=== PATIENT | male | born 1975 | race Hispanic/Latino ===

== ENCOUNTER 2021-09-07 13:23 | Inpatient (IN) | payer OTHER ==
[2021-09-07] VITALS (12 sets, daily range): BP systolic 117–168; BP diastolic 65–102
[~2021-09-07] VITALS: Ht 172.7 cm; Wt 94.1 kg
[2021-09-07] MEDS ORDERED: 0.9%NACL 1000ML 1,000 ML IV ONE ×2 (13:30→14:30)
[2021-09-07 13:56] LABS: BASOPHILS % (AUTO) 0.7 % (0.0-5.0); EOSINOPHILS % (AUTO) 0.6 % (0.0-8.0); HEMATOCRIT 38.6 % (42-54); LYMPHOCYTES % (AUTO) 18.4 % (21.0-51.0); MEAN CORPUSCULAR HEMOGLOBIN 29.3 pg (27.0-33.0); MEAN CORPUSCULAR HGB CONC 33.7 g/dL (32.0-36.0); MEAN CORPUSCULAR VOLUME 86.9 fL (79-99); MONOCYTES % (AUTO) 4.2 % (3.0-13.0); NEUTROPHILS % (AUTO) 75.6 % (40.0-77.0); PLATELET COUNT (AUTO) 337 K/uL (130-400); RED BLOOD CELL COUNT(AUTO) 4.44 MIL/uL (4.50-6.20); RED CELL DISTRIBUTION WIDTH 11.9 % (11.0-15.5); WHITE BLOOD COUNT (AUTO) 8.4 K/uL (4.8-10.8)
[2021-09-07 14:02] LABS: ABG BASE EXCESS -7.8 mmol/L (-2.0-3.0); ABG HCO3 18.7 mmol/L (21.0-28.0); ABG OXYGEN SATURATION 82.1 % (95.0-99.0); ABG PCO2 42 mmHg (35-48)
[2021-09-07 14:16] LABS: BILIRUBIN,TOTAL 0.4 mg/dL (0.2-1.0); POTASSIUM 5.2 mmol/L (3.5-5.1); TOTAL PROTEIN, SERUM 7.3 g/dL (6.0-8.3)
[2021-09-07 14:17] LABS: ALBUMIN 2.6 g/dL (3.5-5.0)
[2021-09-07] MEDS ORDERED: INSULIN HUMULIN R 100 UNIT/ML 3ML IV ONE (14:30)
[2021-09-07] MEDS ORDERED: NA ZIRCON CYCLOSIL(LOKELMA 10GM) PO ONE (14:30)
[2021-09-07] MEDS ORDERED: DEXTROSE 5 %-0.45 % NACL 1,000 ML IV PRN (15:30)
[2021-09-07] MEDS ORDERED: ASPIRIN 81MG CHEW TAB PO ONE (15:30)
[2021-09-07] MEDS ORDERED: INSULIN REGULAR, HUMAN 3ML 100 UNIT in 0.9%NACL 100ML 99 ML IV PRN ×2 (15:30)
[2021-09-07] MEDS ORDERED: 0.9%NACL 1000ML 1,000 ML IV SCH (15:30)
[2021-09-07] MEDS ORDERED: POTASSIUM CHLORIDE 10MEQ/100ML 100 ML IV PRN (15:30)
[2021-09-07] MEDS: 0.9%NACL 1000ML 1,000 ML IV SCH ×2 (15:50→22:07)
[2021-09-07 16:09] LABS: APPEARANCE,URINE CLEAR (CLEAR); BILIRUBIN,URINE NEGATIVE (NEGATIVE); COLOR,URINE YELLOW (YELLOW); GLUCOSE, URINE (UA) >=1000 mg/dL (NEGATIVE); KETONES,URINE 15 mg/dL (NEGATIVE); LEUKOCYTE ESTERASE ,URINE NEGATIVE (NEGATIVE); NITRATE,URINE NEGATIVE (NEGATIVE); OCCULT BLOOD,URINE TRACE-INTACT (NEGATIVE); PH,URINE 5.5 (5.0-8.0); PROTEIN,URINE 30 mg/dL (NEGATIVE); UROBILINOGEN,URINE 0.2 mg/dL (0.2-1.0)
[2021-09-07 16:16] LABS: BACTERIA,URINE Few /HPF (None Seen); SQUAMOUS EPITHELIAL CELL,UR Few /HPF (0-2)
[2021-09-07] MEDS: INSULIN GLARGINE 100 UNITS/ML 10 ML VIAL SQ SCH ×2 (16:25→21:00)
[2021-09-07 16:39] LABS: CREATININE 1.9 mg/dL (0.5-1.5); POTASSIUM 4.3 mmol/L (3.5-5.1)
[2021-09-07] MEDS ORDERED: ASPI-1197 PO (17:26)
[2021-09-07] MEDS ORDERED: BRIM5DRO OP (17:26)
[2021-09-07] MEDS ORDERED: INS7030 SQ ×2 (17:26)
[2021-09-07] MEDS ORDERED: PANT40TA54 PO (17:26)
[2021-09-07] MEDS ORDERED: NETA2.5D3 OP (17:26)
[2021-09-07] MEDS ORDERED: ATOR40TA71 PO (17:26)
[2021-09-07] MEDS ORDERED: LISI5TAB21 PO (17:26)
[2021-09-07] MEDS ORDERED: METO-408 PO (17:26)
[2021-09-07 17:46] LABS: CHLORIDE,URINE RANDOM 45 mmol/L (110-250); POTASSIUM,URINE RANDOM 10 mmol/L (25-125); SODIUM,URINE RANDOM 44 mmol/l (40-220)
[2021-09-07 17:58] LABS: AMPHET/METH SCREEN,URINE NEGATIVE (NEGATIVE); BARBITURATE SCREEN, URINE NEGATIVE (NEGATIVE); BENZODIAZEPINES SCREEN,URINE NEGATIVE (NEGATIVE); CANNABINOID SCREEN,URINE NEGATIVE (NEGATIVE); COCAINE SCREEN,URINE NEGATIVE (NEGATIVE); OPIATE SCREEN,URINE NEGATIVE (NEGATIVE); PHENCYCLIDINE SCREEN,URINE NEGATIVE (NEGATIVE)
[2021-09-07] MEDS ORDERED: TICAGRELOR 90 MG TABLET PO SCH (19:00)
[2021-09-07] MEDS ORDERED: CEFTRIAXONE 1G VIAL IVP SCH (19:00)
[2021-09-07] MEDS: DOXYCYCLINE HYCLATE 100 MG TABLET PO SCH (20:33)
[2021-09-07] MEDS: ATORVASTATIN 40 MG TABLET PO SCH (20:34)
[2021-09-07 20:59] LABS: CREATININE 1.5 mg/dL (0.5-1.5); POTASSIUM 4.1 mmol/L (3.5-5.1)
[2021-09-07] MEDS ORDERED: METOPROLOL TARTRATE 25 MG TAB PO ONE (21:30)
[2021-09-07] MEDS ORDERED: LISINOPRIL 5 MG TABLET PO SCH (21:30)
[2021-09-08] VITALS (19 sets, daily range): BP systolic 130–171; BP diastolic 73–99
[2021-09-08 00:22] LABS: CREATININE 1.3 mg/dL (0.5-1.5); POTASSIUM 3.8 mmol/L (3.5-5.1)
[2021-09-08 00:32] LABS: ABG BASE EXCESS -1.8 mmol/L (-2.0-3.0); ABG HCO3 23.4 mmol/L (21.0-28.0); ABG OXYGEN SATURATION 93.9 % (95.0-99.0); ABG PCO2 42 mmHg (35-48)
[2021-09-08 04:38] LABS: HEMATOCRIT 34.2 % (42-54); MEAN CORPUSCULAR HEMOGLOBIN 29.6 pg (27.0-33.0); MEAN CORPUSCULAR HGB CONC 33.6 g/dL (32.0-36.0); MEAN CORPUSCULAR VOLUME 87.9 fL (79-99); RED BLOOD CELL COUNT(AUTO) 3.89 MIL/uL (4.50-6.20); RED CELL DISTRIBUTION WIDTH 12.2 % (11.0-15.5); WHITE BLOOD COUNT (AUTO) 6.4 K/uL (4.8-10.8)
[2021-09-08 04:56] LABS: CREATININE 1.2 mg/dL (0.5-1.5); POTASSIUM 3.6 mmol/L (3.5-5.1)
[2021-09-08 04:58] LABS: MAGNESIUM 1.7 mg/dL (1.80-2.40)
[2021-09-08] MEDS ORDERED: MAGNESIUM 2GM PREMIX 50ML 50 ML IV PRN (08:00)
[2021-09-08 08:16] LABS: CREATININE 1.3 mg/dL (0.5-1.5); POTASSIUM 3.7 mmol/L (3.5-5.1)
[2021-09-08] MEDS ORDERED: KCL 20 MEQ ERTAB PO PRN (10:00)
[2021-09-08] MEDS ORDERED: POTASSIUM CHLORIDE 10% ELIXIR 20 MEQ/15 ML UDCUP PO PRN (10:00)
[2021-09-08] MEDS ORDERED: LIDOCAINE HCL-MPF 1% 2ML VIAL IV PRN (10:00)
[2021-09-08] MEDS ORDERED: POTASSIUM CHLORIDE 20MEQ/100ML 100 ML IV PRN (10:00)
[2021-09-08] MEDS: 0.9%NACL 1000ML 1,000 ML IV SCH ×2 (10:04→21:27)
[2021-09-08] MEDS: METOPROLOL SUCCINATE 25 MG TAB.SR.24H PO SCH (10:04)
[2021-09-08] MEDS: TICAGRELOR 90 MG TABLET PO SCH ×2 (10:04→20:18)
[2021-09-08] MEDS: LISINOPRIL 5 MG TABLET PO SCH (10:04)
[2021-09-08] MEDS: DOXYCYCLINE HYCLATE 100 MG TABLET PO SCH ×2 (10:04→20:18)
[2021-09-08] MEDS: INSULIN GLARGINE 100 UNITS/ML 10 ML VIAL SQ SCH ×2 (10:05→21:19)
[2021-09-08] MEDS: INSULIN HUMULIN R 100 UNIT/ML 3ML SQ SCH ×3 (12:04→21:20)
[2021-09-08] MEDS ORDERED: CLONIDINE HCL 0.1 MG TABLET ONE (20:15)
[2021-09-08] MEDS: ATORVASTATIN 40 MG TABLET PO SCH (20:18)
[2021-09-08] MEDS ORDERED: CLONIDINE HCL 0.1 MG TABLET PO SCH (20:30)
[2021-09-08] MEDS ORDERED: CEFTRIAXONE 1G VIAL IVP SCH (21:00)
[2021-09-09 00:58] LABS: CREATININE 1.5 mg/dL (0.5-1.5)
[2021-09-09 05:05] VITALS: BP 160/95
[2021-09-09 05:41] LABS: BASOPHILS % (AUTO) 0.6 % (0.0-5.0); EOSINOPHILS % (AUTO) 2.2 % (0.0-8.0); HEMATOCRIT 37.9 % (42-54); LYMPHOCYTES % (AUTO) 37.2 % (21.0-51.0); MEAN CORPUSCULAR HEMOGLOBIN 29.2 pg (27.0-33.0); MEAN CORPUSCULAR HGB CONC 33.8 g/dL (32.0-36.0); MEAN CORPUSCULAR VOLUME 86.5 fL (79-99); MONOCYTES % (AUTO) 6.1 % (3.0-13.0); NEUTROPHILS % (AUTO) 53.6 % (40.0-77.0); PLATELET COUNT (AUTO) 313 K/uL (130-400); RED BLOOD CELL COUNT(AUTO) 4.38 MIL/uL (4.50-6.20); RED CELL DISTRIBUTION WIDTH 12.1 % (11.0-15.5); WHITE BLOOD COUNT (AUTO) 6.4 K/uL (4.8-10.8)
[2021-09-09 06:09] LABS: BILIRUBIN,TOTAL 0.2 mg/dL (0.2-1.0); CREATININE 1.3 mg/dL (0.5-1.5); MAGNESIUM 1.8 mg/dL (1.80-2.40); POTASSIUM 4.1 mmol/L (3.5-5.1); TOTAL PROTEIN, SERUM 6.2 g/dL (6.0-8.3)
[2021-09-09] MEDS: INSULIN HUMULIN R 100 UNIT/ML 3ML SQ SCH ×4 (06:41→11:35)
[2021-09-09 07:00] VITALS: BP 159/100
[2021-09-09] MEDS: INSULIN GLARGINE 100 UNITS/ML 10 ML VIAL SQ SCH (07:01)
[2021-09-09] MEDS ORDERED: HONEY 1 APPL/ML TUBE TP SCH (09:00)
[2021-09-09] MEDS: DOXYCYCLINE HYCLATE 100 MG TABLET PO SCH (09:03)
[2021-09-09] MEDS: METOPROLOL SUCCINATE 25 MG TAB.SR.24H PO SCH (09:03)
[2021-09-09] MEDS: TICAGRELOR 90 MG TABLET PO SCH (09:04)
[2021-09-09] MEDS: LISINOPRIL 5 MG TABLET PO SCH (09:04)
[2021-09-09] MEDS ORDERED: GLIM4TAB36 PO (11:53)
[2021-09-09] MEDS ORDERED: METF-444 PO (11:53)
[2021-09-09] MEDS ORDERED: INSLAN SQ (11:53)
[2021-09-09 12:00] VITALS: BP 152/94
[2021-09-09] MEDS ORDERED: TICA90TA PO (12:35)
== END 2021-09-09 13:00 | disposition home or self-care (01) | DRG 637 ==
LOC: EDH 13:23 → EDHIP 13:24 → 2BH 16:55 → 3BH 09-08 15:59
PROVIDERS: ADMIT Internal Medicine; ATTEND Internal Medicine
DX: E11.10 Type 2 diabetes mellitus with ketoacidosis without coma (principal); I21.A1 Myocardial infarction type 2; J18.9 Pneumonia, unspecified organism; N17.9 Acute kidney failure, unspecified; E87.1 Hypo-osmolality and hyponatremia; E87.5 Hyperkalemia; Z91.19 Patient's noncompliance with other medical treatment and regimen; I25.2 Old myocardial infarction; E78.00 Pure hypercholesterolemia, unspecified; Z95.5 Presence of coronary angioplasty implant and graft; H54.7 Unspecified visual loss; I10 Essential (primary) hypertension; I25.10 Atherosclerotic heart disease of native coronary artery without angina pectoris; E11.621 Type 2 diabetes mellitus with foot ulcer; L97.519 Non-pressure chronic ulcer of other part of right foot with unspecified severity; E87.6 Hypokalemia
CPT/HCPCS: 36415; 36600; 71045; 76770; 80048; 80051; 80053; 80305; 81001; 82010; 82435; 82803; 82947; 82948; 83605; 83735; 83880; 83930; 84100; 84132; 84295; 84443; 84484; 84550; 85018; 85025; 85027; 93005; 93306; 93356; 99291; G0378; J0696; J1815; J3475

== ENCOUNTER 2021-09-14 19:26 | Inpatient (IN) | payer OTHER ==
[~2021-09-14] VITALS: Ht 172.7 cm; Wt 95.4 kg
[~2021-09-14 19:26] MED LIST: ASPI-1197 PO; ATOR40TA71 PO; BRIM5DRO OP; GLIM4TAB36 PO; INSLAN SQ; LISI5TAB21 PO; METF-444 PO; METO-408 PO; NETA2.5D3 OP; PANT40TA54 PO; TICA90TA PO
[2021-09-14 19:51] LABS: BASOPHILS % (AUTO) 0.5 % (0.0-5.0); EOSINOPHILS % (AUTO) 0.7 % (0.0-8.0); HEMATOCRIT 35.7 % (42-54); LYMPHOCYTES % (AUTO) 19.2 % (21.0-51.0); MEAN CORPUSCULAR HEMOGLOBIN 29.9 pg (27.0-33.0); MEAN CORPUSCULAR HGB CONC 34.5 g/dL (32.0-36.0); MEAN CORPUSCULAR VOLUME 86.9 fL (79-99); MONOCYTES % (AUTO) 6.9 % (3.0-13.0); NEUTROPHILS % (AUTO) 72.3 % (40.0-77.0); PLATELET COUNT (AUTO) 284 K/uL (130-400); RED BLOOD CELL COUNT(AUTO) 4.11 MIL/uL (4.50-6.20); RED CELL DISTRIBUTION WIDTH 12.4 % (11.0-15.5); WHITE BLOOD COUNT (AUTO) 11.1 K/uL (4.8-10.8)
[2021-09-14 20:22] LABS: ALANINE AMINOTRANSFERASE 27 U/L (12-78); ALBUMIN 2.4 g/dL (3.5-5.0); ASPARTATE AMINOTRANSFERASE 17 U/L (10-37); CARBON DIOXIDE 29 mmol/L (21-32); CHLORIDE 93 mmol/L (101-111); GLOMERULAR FILTR. RATE CALC 39 mL/min (>60); LIPASE 97 U/L (114-286); POTASSIUM 4.9 mmol/L (3.5-5.1); SODIUM SERUM 129 mmol/L (136-145); TOTAL PROTEIN, SERUM 7.1 g/dL (6.0-8.3); UREA NITROGEN, BLOOD 30 mg/dL (7-18)
[2021-09-14 20:25] LABS: GLUCOSE,RANDOM 715 mg/dL (70-105)
[2021-09-14] MEDS ORDERED: INSULIN HUMULIN R 100 UNIT/ML 3ML ONE (20:30)
[2021-09-14] MEDS ORDERED: 0.9%NACL 1000ML 1,000 ML IV ONE (20:30)
[2021-09-14] MEDS ORDERED: INSULIN HUMULIN R 100 UNIT/ML 3ML SQ ONE (22:30)
[2021-09-14 23:29] LABS: ABG BASE EXCESS -1.1 mmol/L (-2.0-3.0); ABG HCO3 23.4 mmol/L (21.0-28.0); ABG OXYGEN SATURATION 96.8 % (95.0-99.0); ABG PCO2 39 mmHg (35-48)
[2021-09-14 23:30] LABS: APPEARANCE,URINE CLEAR (CLEAR); BILIRUBIN,URINE NEGATIVE (NEGATIVE); COLOR,URINE YELLOW (YELLOW); GLUCOSE, URINE (UA) >=1000 mg/dL (NEGATIVE); KETONES,URINE 5 mg/dL (NEGATIVE); LEUKOCYTE ESTERASE ,URINE NEGATIVE (NEGATIVE); NITRATE,URINE NEGATIVE (NEGATIVE); OCCULT BLOOD,URINE SMALL (NEGATIVE); PROTEIN,URINE 100 mg/dL (NEGATIVE); UROBILINOGEN,URINE 0.2 mg/dL (0.2-1.0)
[2021-09-15] VITALS (7 sets, daily range): BP systolic 120–168; BP diastolic 79–103
[2021-09-15] MEDS ORDERED: MORPHINE 4 MG SYG IV PRN
[2021-09-15] MEDS ORDERED: ACETAMINOPHEN 325 MG TAB PO PRN
[2021-09-15] MEDS ORDERED: HYDROCODONE/ACETAMINOPHEN 5/325 MG TAB PO PRN
[2021-09-15] MEDS ORDERED: 0.9%NACL 1000ML 1,000 ML IV SCH ×2
[2021-09-15] MEDS ORDERED: ONDANSETRON 4MG INJ IV PRN
[2021-09-15 00:31] LABS: RBC,URINE 0-1 /HPF (0-1)
[2021-09-15 00:32] LABS: BACTERIA,URINE None Seen /HPF (None Seen); SQUAMOUS EPITHELIAL CELL,UR Rare /HPF (0-2)
[2021-09-15 05:46] LABS: BASOPHILS % (AUTO) 0.4 % (0.0-5.0); EOSINOPHILS % (AUTO) 1.5 % (0.0-8.0); HEMATOCRIT 33.5 % (42-54); LYMPHOCYTES % (AUTO) 24.8 % (21.0-51.0); MEAN CORPUSCULAR HEMOGLOBIN 29.3 pg (27.0-33.0); MEAN CORPUSCULAR HGB CONC 33.4 g/dL (32.0-36.0); MEAN CORPUSCULAR VOLUME 87.7 fL (79-99); MONOCYTES % (AUTO) 7.2 % (3.0-13.0); NEUTROPHILS % (AUTO) 65.8 % (40.0-77.0); PLATELET COUNT (AUTO) 269 K/uL (130-400); RED BLOOD CELL COUNT(AUTO) 3.82 MIL/uL (4.50-6.20); RED CELL DISTRIBUTION WIDTH 12.7 % (11.0-15.5); WHITE BLOOD COUNT (AUTO) 9.1 K/uL (4.8-10.8)
[2021-09-15 06:01] LABS: CREATININE 1.4 mg/dL (0.5-1.5); MAGNESIUM 1.9 mg/dL (1.80-2.40); PHOSPHORUS 2.7 mg/dL (2.5-4.9); POTASSIUM 4.3 mmol/L (3.5-5.1)
[2021-09-15] MEDS: INSULIN HUMULIN R 100 UNIT/ML 3ML SQ SCH ×4 (06:19→21:08)
[2021-09-15] MEDS ORDERED: HEPARIN 5,000 UNIT VIAL SQ SCH (09:00)
[2021-09-15] MEDS: ASPIRIN 81MG CHEW TAB PO SCH (12:05)
[2021-09-15] MEDS: TICAGRELOR 90 MG TABLET PO SCH ×2 (12:06→21:07)
[2021-09-15] MEDS: FAMOTIDINE 20MG VIAL IV SCH (12:06)
[2021-09-15] MEDS: INSULIN GLARGINE 100 UNITS/ML 10 ML VIAL SQ SCH (12:07)
[2021-09-15 14:22] LABS: CREATININE 1.5 mg/dL (0.5-1.5); POTASSIUM 4.7 mmol/L (3.5-5.1)
[2021-09-15] MEDS: ATORVASTATIN 40 MG TABLET PO SCH (21:07)
[2021-09-15 22:22] LABS: CREATININE 1.8 mg/dL (0.5-1.5); POTASSIUM 4.1 mmol/L (3.5-5.1)
[2021-09-16 04:31] VITALS: BP 149/89
[2021-09-16 05:15] LABS: BASOPHILS % (AUTO) 0.3 % (0.0-5.0); EOSINOPHILS % (AUTO) 1.9 % (0.0-8.0); HEMATOCRIT 34.3 % (42-54); LYMPHOCYTES % (AUTO) 20.2 % (21.0-51.0); MEAN CORPUSCULAR HEMOGLOBIN 29.3 pg (27.0-33.0); MEAN CORPUSCULAR HGB CONC 33.8 g/dL (32.0-36.0); MEAN CORPUSCULAR VOLUME 86.6 fL (79-99); NEUTROPHILS % (AUTO) 68.2 % (40.0-77.0); PLATELET COUNT (AUTO) 265 K/uL (130-400); RED BLOOD CELL COUNT(AUTO) 3.96 MIL/uL (4.50-6.20); RED CELL DISTRIBUTION WIDTH 12.4 % (11.0-15.5); WHITE BLOOD COUNT (AUTO) 10.6 K/uL (4.8-10.8)
[2021-09-16 05:38] LABS: CREATININE 1.5 mg/dL (0.5-1.5); MAGNESIUM 1.8 mg/dL (1.80-2.40); POTASSIUM 4.1 mmol/L (3.5-5.1)
[2021-09-16] MEDS: INSULIN HUMULIN R 100 UNIT/ML 3ML SQ SCH ×7 (06:04→23:35)
[2021-09-16 08:02] VITALS: BP 122/77
[2021-09-16] MEDS: INSULIN GLARGINE 100 UNITS/ML 10 ML VIAL SQ SCH (08:46)
[2021-09-16] MEDS: METOPROLOL SUCCINATE 25 MG TAB.SR.24H PO SCH (08:55)
[2021-09-16] MEDS: ASPIRIN 81MG CHEW TAB PO SCH (08:56)
[2021-09-16] MEDS: TICAGRELOR 90 MG TABLET PO SCH ×2 (08:56→20:42)
[2021-09-16] MEDS: FAMOTIDINE 20MG VIAL IV SCH (08:57)
[2021-09-16] MEDS ORDERED: LISINOPRIL 5 MG TABLET PO SCH ×2 (09:00→20:00)
[2021-09-16 11:16] VITALS: BP 168/92
[2021-09-16 16:09] VITALS: BP 156/99
[2021-09-16 20:36] VITALS: BP 153/90
[2021-09-16] MEDS: ATORVASTATIN 40 MG TABLET PO SCH (20:42)
[2021-09-16 23:18] VITALS: BP 130/81
[2021-09-17] VITALS (8 sets, daily range): BP systolic 94–158; BP diastolic 60–98
[2021-09-17] MEDS: INSULIN HUMULIN R 100 UNIT/ML 3ML SQ SCH ×7 (06:41→23:12)
[2021-09-17 06:55] LABS: BASOPHILS % (AUTO) 0.5 % (0.0-5.0); EOSINOPHILS % (AUTO) 4.2 % (0.0-8.0); HEMATOCRIT 37.8 % (42-54); LYMPHOCYTES % (AUTO) 27.9 % (21.0-51.0); MEAN CORPUSCULAR HEMOGLOBIN 29.5 pg (27.0-33.0); MEAN CORPUSCULAR HGB CONC 33.6 g/dL (32.0-36.0); MEAN CORPUSCULAR VOLUME 87.7 fL (79-99); MONOCYTES % (AUTO) 8.4 % (3.0-13.0); NEUTROPHILS % (AUTO) 58.7 % (40.0-77.0); PLATELET COUNT (AUTO) 272 K/uL (130-400); RED BLOOD CELL COUNT(AUTO) 4.31 MIL/uL (4.50-6.20); RED CELL DISTRIBUTION WIDTH 12.2 % (11.0-15.5); WHITE BLOOD COUNT (AUTO) 7.6 K/uL (4.8-10.8)
[2021-09-17 07:05] LABS: CREATININE 1.4 mg/dL (0.5-1.5); MAGNESIUM 1.8 mg/dL (1.80-2.40)
[2021-09-17 07:14] LABS: POTASSIUM 6.8 mmol/L (3.5-5.1)
[2021-09-17] MEDS ORDERED: PHARMACY COMMUNICATION MISC SCH (08:00)
[2021-09-17 08:10] LABS: CREATININE 1.3 mg/dL (0.5-1.5); POTASSIUM 5.2 mmol/L (3.5-5.1)
[2021-09-17] MEDS ORDERED: NA ZIRCON CYCLOSIL(LOKELMA 10GM) PO NR (08:30)
[2021-09-17] MEDS: ASPIRIN 81MG CHEW TAB PO SCH (08:50)
[2021-09-17] MEDS: METOPROLOL SUCCINATE 25 MG TAB.SR.24H PO SCH (08:50)
[2021-09-17] MEDS: INSULIN GLARGINE 100 UNITS/ML 10 ML VIAL SQ SCH (08:50)
[2021-09-17] MEDS: FAMOTIDINE 20MG VIAL IV SCH (08:50)
[2021-09-17] MEDS: TICAGRELOR 90 MG TABLET PO SCH ×2 (08:50→23:11)
[2021-09-17 13:12] LABS: CREATININE 1.4 mg/dL (0.5-1.5); POTASSIUM 4.5 mmol/L (3.5-5.1)
[2021-09-17] MEDS ORDERED: 0.9% NACL 500ML IV.SOLN 500 ML IV SCH (17:30)
[2021-09-17] MEDS: 0.9%NACL 1000ML 1,000 ML IV SCH (17:54)
[2021-09-17 18:10] LABS: APPEARANCE,URINE CLEAR (CLEAR); BILIRUBIN,URINE NEGATIVE (NEGATIVE); COLOR,URINE YELLOW (YELLOW); GLUCOSE, URINE (UA) >=1000 mg/dL (NEGATIVE); KETONES,URINE NEGATIVE (NEGATIVE); LEUKOCYTE ESTERASE ,URINE NEGATIVE (NEGATIVE); NITRATE,URINE NEGATIVE (NEGATIVE); OCCULT BLOOD,URINE SMALL (NEGATIVE); PROTEIN,URINE 100 mg/dL (NEGATIVE); UROBILINOGEN,URINE 0.2 mg/dL (0.2-1.0)
[2021-09-17 18:37] LABS: BACTERIA,URINE Few /HPF (None Seen); MUCUS,URINE Moderate LPF (None Seen); SQUAMOUS EPITHELIAL CELL,UR Many /HPF (0-2)
[2021-09-17] MEDS: ATORVASTATIN 40 MG TABLET PO SCH (23:11)
[2021-09-18 04:34] VITALS: BP 153/96
[2021-09-18] MEDS: INSULIN HUMULIN R 100 UNIT/ML 3ML SQ SCH ×6 (06:34→16:53)
[2021-09-18] MEDS: 0.9%NACL 1000ML 1,000 ML IV SCH (06:50)
[2021-09-18 07:01] LABS: BASOPHILS % (AUTO) 0.4 % (0.0-5.0); EOSINOPHILS % (AUTO) 2.9 % (0.0-8.0); HEMATOCRIT 35.4 % (42-54); LYMPHOCYTES % (AUTO) 29.1 % (21.0-51.0); MEAN CORPUSCULAR HEMOGLOBIN 29.3 pg (27.0-33.0); MEAN CORPUSCULAR HGB CONC 33.6 g/dL (32.0-36.0); MEAN CORPUSCULAR VOLUME 87.2 fL (79-99); MONOCYTES % (AUTO) 6.6 % (3.0-13.0); NEUTROPHILS % (AUTO) 60.5 % (40.0-77.0); PLATELET COUNT (AUTO) 274 K/uL (130-400); RED BLOOD CELL COUNT(AUTO) 4.06 MIL/uL (4.50-6.20); RED CELL DISTRIBUTION WIDTH 12.3 % (11.0-15.5)
[2021-09-18 07:16] LABS: CREATININE 1.4 mg/dL (0.5-1.5); POTASSIUM 4.4 mmol/L (3.5-5.1)
[2021-09-18 08:00] VITALS: BP 125/83
[2021-09-18 08:03] VITALS: BP 90/59
[2021-09-18 08:06] VITALS: BP 87/53
[2021-09-18] MEDS: METOPROLOL SUCCINATE 25 MG TAB.SR.24H PO SCH ×2 (08:17→09:00)
[2021-09-18] MEDS: ASPIRIN 81MG CHEW TAB PO SCH (08:18)
[2021-09-18] MEDS: TICAGRELOR 90 MG TABLET PO SCH (08:18)
[2021-09-18] MEDS: FAMOTIDINE 20MG VIAL IV SCH (08:18)
[2021-09-18] MEDS: INSULIN GLARGINE 100 UNITS/ML 10 ML VIAL SQ SCH (08:21)
[2021-09-18 12:00] VITALS: BP 132/68
[2021-09-18 16:00] VITALS: BP 97/52
[2021-09-18] MEDS ORDERED: TICA90TA PO (16:10)
[2021-09-18] MEDS ORDERED: ASPI-1005 PO (16:10)
[2021-09-19] MEDS ORDERED: INSULIN GLARGINE 100 UNITS/ML 10 ML VIAL SQ SCH (08:00)
== END 2021-09-18 18:30 | disposition home or self-care (01) | DRG 637 ==
LOC: EDH 19:26 → EDHIP 19:27 → 3DH 09-15 00:38
PROVIDERS: ADMIT Internal Medicine; ATTEND Internal Medicine
DX: E11.65 Type 2 diabetes mellitus with hyperglycemia (principal); I21.A1 Myocardial infarction type 2; N17.9 Acute kidney failure, unspecified; I13.0 Hypertensive heart and chronic kidney disease with heart failure and stage 1 through stage 4 chronic kidney disease, or unspecified chronic kidney disease; D72.829 Elevated white blood cell count, unspecified; E11.621 Type 2 diabetes mellitus with foot ulcer; Z91.19 Patient's noncompliance with other medical treatment and regimen; E78.5 Hyperlipidemia, unspecified; D64.9 Anemia, unspecified; I25.2 Old myocardial infarction; L97.519 Non-pressure chronic ulcer of other part of right foot with unspecified severity; I50.9 Heart failure, unspecified; E87.5 Hyperkalemia; Z91.14 Patient's other noncompliance with medication regimen; I25.10 Atherosclerotic heart disease of native coronary artery without angina pectoris; H54.7 Unspecified visual loss; E11.22 Type 2 diabetes mellitus with diabetic chronic kidney disease; N18.30 Chronic kidney disease, stage 3 unspecified
CPT/HCPCS: 36415; 36600; 71045; 76770; 80048; 80053; 81001; 82010; 82435; 82803; 82947; 82948; 83605; 83690; 83735; 83880; 83930; 84100; 84132; 84295; 84484; 85018; 85025; 93005; 99291; G0378; J1815; J3490; J7030; J7040

== ENCOUNTER 2021-10-09 13:15 | Emergency (ER) | payer MEDICAID, OTHER ==
[~2021-10-09] VITALS: Ht 182.9 cm; Wt 95.3 kg
[~2021-10-09 13:15] MED LIST changes: +ASPI-1005 PO; -ASPI-1197 PO; -GLIM4TAB36 PO; -INSLAN SQ; -METF-444 PO
[2021-10-09 13:34] LABS: BASOPHILS % (AUTO) 0.5 % (0.0-5.0); EOSINOPHILS % (AUTO) 2.5 % (0.0-8.0); HEMATOCRIT 33.5 % (42-54); LYMPHOCYTES % (AUTO) 22.7 % (21.0-51.0); MEAN CORPUSCULAR HEMOGLOBIN 30.1 pg (27.0-33.0); MEAN CORPUSCULAR HGB CONC 33.7 g/dL (32.0-36.0); MEAN CORPUSCULAR VOLUME 89.1 fL (79-99); MONOCYTES % (AUTO) 8.2 % (3.0-13.0); NEUTROPHILS % (AUTO) 65.9 % (40.0-77.0); PLATELET COUNT (AUTO) 327 K/uL (130-400); RED BLOOD CELL COUNT(AUTO) 3.76 MIL/uL (4.50-6.20); RED CELL DISTRIBUTION WIDTH 13.9 % (11.0-15.5); WHITE BLOOD COUNT (AUTO) 8.8 K/uL (4.8-10.8)
[2021-10-09 13:46] LABS: INR 0.93 (0.85-1.15); PROTHROMBIN TIME 9.8 SEC (9.6-11.6)
[2021-10-09 13:48] LABS: PARTIAL THROMBOPLASTIN TIME 29.3 SEC (26.3-35.5)
[2021-10-09 13:51] LABS: ALBUMIN 2.3 g/dL (3.5-5.0); CREATININE 1.7 mg/dL (0.5-1.5); POTASSIUM 5.4 mmol/L (3.5-5.1)
[2021-10-09] MEDS ORDERED: IPRATROPIUM/ALBUTEROL SULFATE 3 ML SOLUTION IH ONE (14:00)
[2021-10-09 14:25] LABS: APPEARANCE,URINE CLEAR (CLEAR); BILIRUBIN,URINE NEGATIVE (NEGATIVE); COLOR,URINE YELLOW (YELLOW); GLUCOSE, URINE (UA) >=1000 mg/dL (NEGATIVE); KETONES,URINE NEGATIVE (NEGATIVE); LEUKOCYTE ESTERASE ,URINE NEGATIVE (NEGATIVE); NITRATE,URINE NEGATIVE (NEGATIVE); OCCULT BLOOD,URINE SMALL (NEGATIVE); PROTEIN,URINE 100 mg/dL (NEGATIVE); UROBILINOGEN,URINE 0.2 mg/dL (0.2-1.0)
[2021-10-09 14:45] LABS: RBC,URINE None Seen /HPF (0-1)
[2021-10-09 14:46] LABS: BACTERIA,URINE Few /HPF (None Seen); SQUAMOUS EPITHELIAL CELL,UR None Seen /HPF (0-2); WBC,URINE 0-1 /HPF (0-1)
[2021-10-09] MEDS ORDERED: LACTULOSE 20 GM/30 ML UDCUP PO ONE (15:00)
[2021-10-09] MEDS ORDERED: KAYEXALATE 15GM/60ML PO SCH (15:00)
[2021-10-09] MEDS ORDERED: AZITHROMYCIN 250 MG TABLET PO ONE (15:00)
[2021-10-09] MEDS ORDERED: KAYEXALATE 15GM/60ML ONE (15:00)
[2021-10-09] MEDS ORDERED: CEFTRIAXONE 1G VIAL IVP ONE (15:00)
[2021-10-09] MEDS ORDERED: ONDANSETRON 4MG INJ ONE (15:24)
[2021-10-09] MEDS ORDERED: ONDANSETRON 4MG INJ IVP ONE ×2 (15:30→16:00)
[2021-10-09] MEDS ORDERED: ALBU8.5H8 IH (15:33)
[2021-10-09] MEDS ORDERED: AMOX1TAB16 PO (15:33)
[2021-10-09] MEDS ORDERED: CLONIDINE HCL 0.1 MG TABLET ONE (15:51)
[2021-10-09 16:01] VITALS: BP 175/107
[2021-11-10] MEDS ORDERED: ATOR40TA69 PO (08:35)
[2021-11-10] MEDS ORDERED: CLOP75TA32 PO (08:35)
[2021-11-10] MEDS ORDERED: SULF1TAB42 PO (08:35)
[2021-11-10] MEDS ORDERED: CIPR-278 PO (08:35)
[2021-11-19] MEDS ORDERED: HYDR25 PO (11:18)
[2021-11-19] MEDS ORDERED: INSLAN SQ (11:18)
[2021-11-29] MEDS ORDERED: ACET-2123 PO (21:52)
[2021-11-29] MEDS ORDERED: FLUC200T12 PO (21:52)
[2021-11-29] MEDS ORDERED: DOXY100C5 PO (21:52)
[2021-11-29] MEDS ORDERED: ACET-2743 PO (21:52)
[2021-12-15] MEDS ORDERED: INSLAN SQ (01:48)
[2021-12-15] MEDS ORDERED: GENT30OI2 TP (01:48)
[2021-12-15] MEDS ORDERED: ZOSY3375FZ IV (01:48)
[2021-12-15] MEDS ORDERED: NUTR1PAC14 PO (01:48)
[2021-12-15] MEDS ORDERED: FAMO20TA8 PO (01:48)
[2021-12-15] MEDS ORDERED: [UNRECOGNIZED DRUG - CODE] IV (01:48)
[2021-12-15] MEDS ORDERED: INSREG SQ (01:48)
[2021-12-15] MEDS ORDERED: CARV6.2579 PO (01:48)
[2021-12-15] MEDS ORDERED: CLOP75TA14 PO (01:48)
[2021-12-15] MEDS ORDERED: AEC81 PO (01:48)
[2021-12-15] MEDS ORDERED: FURO40TA7 PO (01:48)
[2021-12-15] MEDS ORDERED: DOCU100C33 PO (01:48)
[2021-12-15] MEDS ORDERED: FOLI0.8T2 PO (01:48)
[2021-12-15] MEDS ORDERED: SUCR1TAB2 PO (01:48)
[2021-12-15] MEDS ORDERED: [UNRECOGNIZED DRUG - CODE] IV (01:48)
== END 2021-10-09 16:04 | disposition home or self-care (01) ==
LOC: EDH 13:15
DX: J18.9 Pneumonia, unspecified organism (principal); N28.9 Disorder of kidney and ureter, unspecified; E11.51 Type 2 diabetes mellitus with diabetic peripheral angiopathy without gangrene; I10 Essential (primary) hypertension; Z79.82 Long term (current) use of aspirin; Z79.899 Other long term (current) drug therapy
CPT/HCPCS: 99285; 96374; 93971; 71045; 96375; 82550; 84484; 80053; 83880; 85025; 85378; 85610; 85730; 81001; 36415; 93005; 94640; J0696; J2405

== ENCOUNTER 2021-11-23 23:36 | Emergency (ER) | payer BC, OTHER ==
[~2021-11-23] VITALS: Ht 172.7 cm; Wt 99.8 kg
[~2021-11-23 23:36] MED LIST changes: -ASPI-1005 PO; +ATOR40TA69 PO; -ATOR40TA71 PO; -BRIM5DRO OP; +CLOP75TA32 PO; +HYDR25 PO; +INSLAN SQ; -LISI5TAB21 PO; -METO-408 PO; -NETA2.5D3 OP; -PANT40TA54 PO; -TICA90TA PO
[2021-11-23 23:53] LABS: BASOPHILS % (AUTO) 0.4 % (0.0-5.0); EOSINOPHILS % (AUTO) 0.8 % (0.0-8.0); HEMATOCRIT 34.5 % (42-54); LYMPHOCYTES % (AUTO) 7.1 % (21.0-51.0); MEAN CORPUSCULAR HEMOGLOBIN 29.7 pg (27.0-33.0); MEAN CORPUSCULAR HGB CONC 33.6 g/dL (32.0-36.0); MEAN CORPUSCULAR VOLUME 88.5 fL (79-99); MONOCYTES % (AUTO) 6.9 % (3.0-13.0); NEUTROPHILS % (AUTO) 84.3 % (40.0-77.0); PLATELET COUNT (AUTO) 300 K/uL (130-400); RED CELL DISTRIBUTION WIDTH 14.3 % (11.0-15.5); WHITE BLOOD COUNT (AUTO) 12.6 K/uL (4.8-10.8)
[2021-11-24 00:05] LABS: APPEARANCE,URINE CLOUDY (CLEAR); BILIRUBIN,URINE NEGATIVE (NEGATIVE); COLOR,URINE LIGHT-YELLOW (YELLOW); GLUCOSE, URINE (UA) >=1000 mg/dL (NEGATIVE); KETONES,URINE NEGATIVE (NEGATIVE); LEUKOCYTE ESTERASE ,URINE NEGATIVE Leu/uL (NEGATIVE); NITRATE,URINE NEGATIVE (NEGATIVE); OCCULT BLOOD,URINE MODERATE (NEGATIVE); PROTEIN,URINE 600 mg/dL (NEGATIVE); UROBILINOGEN,URINE 0.2 mg/dL (0.2-1.0)
[2021-11-24 00:16] LABS: ALANINE AMINOTRANSFERASE 45 U/L (12-78); ALBUMIN 2.1 g/dL (3.5-5.0); ASPARTATE AMINOTRANSFERASE 21 U/L (10-37); CARBON DIOXIDE 26 mmol/L (21-32); CHLORIDE 93 mmol/L (101-111); CREATININE 2.8 mg/dL (0.5-1.5); GLOMERULAR FILTR. RATE CALC 26 mL/min (>60); LIPASE < 50 U/L (114-286); POTASSIUM 4.9 mmol/L (3.5-5.1); SODIUM SERUM 125 mmol/L (136-145); TOTAL PROTEIN, SERUM 7.2 g/dL (6.0-8.3); UREA NITROGEN, BLOOD 40 mg/dL (7-18)
[2021-11-24 00:17] LABS: GLUCOSE,RANDOM 423 mg/dL (70-105)
[2021-11-24 00:26] LABS: BACTERIA,URINE None Seen /HPF (None Seen); SQUAMOUS EPITHELIAL CELL,UR Few /HPF (0-2)
[2021-11-24] MEDS ORDERED: INSULIN HUMULIN R 100 UNIT/ML 3ML SQ ONE (00:30)
[2021-11-24] MEDS ORDERED: AMPICILLIN/SULBAC 1.5GM VIAL ONE (00:57)
[2021-11-24] MEDS ORDERED: AMPICILLIN/SULBAC 1.5GM VIAL IV ONE (01:00)
[2021-11-24] MEDS ORDERED: 0.9%NACL 100ML 100 ML IV ONE (01:30)
[2021-11-24] MEDS ORDERED: AMOX1TAB16 PO (01:55)
[2021-11-24 01:56] VITALS: BP 108/62
== END 2021-11-24 02:00 | disposition home or self-care (01) ==
LOC: EDH 23:36
DX: E11.621 Type 2 diabetes mellitus with foot ulcer (principal); L97.519 Non-pressure chronic ulcer of other part of right foot with unspecified severity; R50.9 Fever, unspecified
CPT/HCPCS: 99284; 71045; 80053; 83690; 85025; 82948 ×2; 81001; 36415; 74176; 96365; 96372; J1815; J0295

== ENCOUNTER 2023-11-22 13:56 | Inpatient (IN) | payer SELFPAY ==
[~2023-11-22] VITALS: Ht 180.3 cm; Wt 102.1 kg
[~2023-11-22 13:56] MED LIST changes: +AEC81 PO; -ATOR40TA69 PO; +CARV6.2579 PO; +CLOP-31 PO; -CLOP75TA32 PO; +FOLI0.8T2 PO; +FURO40TA7 PO; +HYDR-3420 PO; -HYDR25 PO; -INSLAN SQ; +INSU100I35 SQ; +SUCR1TAB28 PO
[2023-11-22 15:53] LABS: BASOPHILS # (AUTO) 0.05 K/uL (0.00-0.20); BASOPHILS % (AUTO) 0.5 % (0.0-5.0); EOSINOPHILS # (AUTO) 0.07 K/uL (0.00-0.70); EOSINOPHILS % (AUTO) 0.7 % (0.0-8.0); HEMATOCRIT 42.2 % (42-54); IMMATURE GRANULOCYTE ABSOLUTE 0.04 K/uL (0-1); LYMPHOCYTES # (AUTO) 1.6 K/uL (1.0-4.8); LYMPHOCYTES % (AUTO) 15.7 % (21.0-51.0); MEAN CORPUSCULAR HEMOGLOBIN 30.7 pg (27.0-33.0); MEAN CORPUSCULAR HGB CONC 33.6 g/dL (32.0-36.0); MEAN CORPUSCULAR VOLUME 91.1 fL (79-99); MONOCYTES # (AUTO) 0.6 K/uL (0.1-1.0); MONOCYTES % (AUTO) 5.6 % (3.0-13.0); NEUTROPHILS # (AUTO) 7.7 K/uL (1.8-7.7); NEUTROPHILS % (AUTO) 77.1 % (40.0-77.0); PLATELET COUNT (AUTO) 257 K/uL (130-400); RED BLOOD CELL COUNT(AUTO) 4.63 MIL/uL (4.50-6.20); RED CELL DISTRIBUTION WIDTH 12.8 % (11.0-15.5)
[2023-11-22 16:00] LABS: CREATININE 2.2 mg/dL (0.5-1.3); POTASSIUM 5.9 mmol/L (3.5-5.1)
[2023-11-22 16:05] LABS: ALBUMIN 2.4 g/dL (3.5-5.0); BILIRUBIN,TOTAL 0.3 mg/dL (0.2-1.0); TOTAL PROTEIN, SERUM 6.5 g/dL (6.0-8.3)
[2023-11-22] MEDS: ALBUTEROL 0.083% 2.5 MG/3 ML INH IH SCH (17:19)
[2023-11-22 17:22] VITALS: PULSE 78; RESP 18
[2023-11-22 17:30] LABS: APPEARANCE,URINE CLOUDY (CLEAR); BILIRUBIN,URINE NEGATIVE (NEGATIVE); COLOR,URINE LIGHT-YELLOW (YELLOW); GLUCOSE, URINE (UA) >=1000 mg/dL (NEGATIVE); KETONES,URINE NEGATIVE (NEGATIVE); LEUKOCYTE ESTERASE ,URINE 250 Leu/uL (NEGATIVE); NITRATE,URINE NEGATIVE (NEGATIVE); OCCULT BLOOD,URINE LARGE (NEGATIVE); OTHER CASTS, URINE 1 /LPF (None Seen); PH,URINE 6.5 (5.0-8.0); PROTEIN,URINE 300 mg/dL (NEGATIVE); SQUAMOUS EPITHELIAL CELL,UR RARE /HPF (0-2); UROBILINOGEN,URINE 0.2 mg/dL (0.2-1.0); WBC,URINE TNTC /HPF (0-1); YEAST,URINE BUDDING RARE /HPF (None Seen)
[2023-11-22] MEDS: kayEXALate 15GM/60ML PO NR (17:44)
[2023-11-22] MEDS: INSULIN humuLIN R 100 UNIT/ML 3ML IV ONE (17:46)
[2023-11-22] MEDS: DEXTROSE 50%-WATER 25 GM/50 ML VIAL IV ONE (17:46)
[2023-11-22] MEDS: DEXTROSE 50%-WATER 50 ML DISP.SYRIN IV ONE (17:47)
[2023-11-22] MEDS ORDERED: TEMAZepam 15 MG CAPSULE PO PRN (19:00)
[2023-11-22] MEDS ORDERED: ondanSETRON 4MG INJ IVP PRN (19:00)
[2023-11-22] MEDS ORDERED: acetaMINOPHEN 325 MG TAB PO PRN (19:00)
[2023-11-22] MEDS ORDERED: acetaMINOPHEN 650 MG SUPPOSITORY RC PRN (19:00)
[2023-11-22] MEDS ORDERED: cefTRIAXone 1G VIAL IVPB ONE (19:00)
[2023-11-22] MEDS ORDERED: doCUSate SODIUM 100 MG CAP PO PRN (19:00)
[2023-11-22] MEDS ORDERED: LACTULOSE 20 GM/30 ML UDCUP PO PRN (19:00)
[2023-11-22] MEDS: CEFTRIAXONE 2GM VIAL IVPB SCH (19:14)
[2023-11-22] MEDS: CALCIUM GLUC 1GM 1 GM in 0.9%NACL 100ML 100 ML IV ONE (19:14)
[2023-11-22] MEDS: 0.9%NACL 1000ML 1,000 ML IV SCH (19:14)
[2023-11-22] MEDS: INSULIN humuLIN R 100 UNIT/ML 3ML SQ SCH (21:05)
[2023-11-22 21:08] LABS: CREATININE 2.1 mg/dL (0.5-1.3); POTASSIUM 3.9 mmol/L (3.5-5.1)
[2023-11-22] MEDS: hydrALAZine 20MG/ML VIAL IV PRN (23:25)
[2023-11-23] VITALS (8 sets, daily range): BP systolic 100–156; BP diastolic 67–90; PULSE 79–99; RESP 16–19; TEMP 98–99.3; O2SAT 100
[2023-11-23] MEDS: acetaMINOPHEN 500 MG TABLET PO ONE (01:41)
[2023-11-23 05:12] LABS: HEMATOCRIT 40.6 % (42-54); MEAN CORPUSCULAR HGB CONC 32.8 g/dL (32.0-36.0); MEAN CORPUSCULAR VOLUME 91.4 fL (79-99); RED BLOOD CELL COUNT(AUTO) 4.44 MIL/uL (4.50-6.20); RED CELL DISTRIBUTION WIDTH 12.8 % (11.0-15.5)
[2023-11-23 05:56] LABS: CREATININE 1.9 mg/dL (0.5-1.3); MAGNESIUM 2.1 mg/dL (1.80-2.40); PHOSPHORUS 3.8 mg/dL (2.5-4.9); POTASSIUM 3.4 mmol/L (3.5-5.1)
[2023-11-24] VITALS (7 sets, daily range): BP systolic 149–175; BP diastolic 91–102; PULSE 78–91; RESP 12–19; TEMP 97.6–98.9; O2SAT 97
[2023-11-24] MEDS ORDERED: PHARMACY COMMUNICATION MISC SCH
[2023-11-24 05:07] LABS: BASOPHILS # (AUTO) 0.04 K/uL (0.00-0.20); BASOPHILS % (AUTO) 0.5 % (0.0-5.0); EOSINOPHILS # (AUTO) 0.26 K/uL (0.00-0.70); EOSINOPHILS % (AUTO) 3.4 % (0.0-8.0); IMMATURE GRANULOCYTE ABSOLUTE 0.03 K/uL (0-1); LYMPHOCYTES # (AUTO) 2.4 K/uL (1.0-4.8); LYMPHOCYTES % (AUTO) 31.8 % (21.0-51.0); MEAN CORPUSCULAR HEMOGLOBIN 30.1 pg (27.0-33.0); MEAN CORPUSCULAR HGB CONC 32.7 g/dL (32.0-36.0); MEAN CORPUSCULAR VOLUME 92.1 fL (79-99); MONOCYTES # (AUTO) 0.7 K/uL (0.1-1.0); MONOCYTES % (AUTO) 9.2 % (3.0-13.0); NEUTROPHILS # (AUTO) 4.2 K/uL (1.8-7.7); NEUTROPHILS % (AUTO) 54.7 % (40.0-77.0); PLATELET COUNT (AUTO) 254 K/uL (130-400); RED BLOOD CELL COUNT(AUTO) 4.45 MIL/uL (4.50-6.20); RED CELL DISTRIBUTION WIDTH 12.7 % (11.0-15.5); WHITE BLOOD COUNT (AUTO) 7.7 K/uL (4.8-10.8)
[2023-11-24 05:33] LABS: ALBUMIN 2.1 g/dL (3.5-5.0); BILIRUBIN,TOTAL 0.1 mg/dL (0.2-1.0); CREATININE 1.9 mg/dL (0.5-1.3); MAGNESIUM 2.1 mg/dL (1.80-2.40); PHOSPHORUS 3.8 mg/dL (2.5-4.9); POTASSIUM 3.9 mmol/L (3.5-5.1); THYROID STIMULATING HORMONE 3.96 uIU/mL (0.36-3.74); TOTAL PROTEIN, SERUM 6.1 g/dL (6.0-8.3); URIC ACID 4.7 mg/dL (2.6-7.2)
[2023-11-24] MEDS: Vitamin B Complex/Vit C/Folic Acid PO SCH (08:57)
[2023-11-24] MEDS ORDERED: ATOR40TA69 PO (13:55)
[2023-11-24] MEDS: hydrALAZine 25MG TABLET PO ONE (14:23)
[2023-11-24] MEDS: carVEDIlol 6.25 MG TABLET PO SCH (20:22)
[2023-11-24] MEDS: hydrALAZine 25MG TABLET PO SCH (20:26)
[2023-11-25] VITALS (7 sets, daily range): BP systolic 93–177; BP diastolic 65–100; PULSE 75–94; RESP 14–20; TEMP 98–99.8; O2SAT 96
[2023-11-25 05:29] LABS: BASOPHILS # (AUTO) 0.04 K/uL (0.00-0.20); BASOPHILS % (AUTO) 0.5 % (0.0-5.0); EOSINOPHILS # (AUTO) 0.23 K/uL (0.00-0.70); HEMATOCRIT 38.4 % (42-54); IMMATURE GRANULOCYTE ABSOLUTE 0.04 K/uL (0-1); LYMPHOCYTES % (AUTO) 26.5 % (21.0-51.0); MEAN CORPUSCULAR HEMOGLOBIN 30.2 pg (27.0-33.0); MEAN CORPUSCULAR HGB CONC 33.1 g/dL (32.0-36.0); MEAN CORPUSCULAR VOLUME 91.2 fL (79-99); MONOCYTES # (AUTO) 0.5 K/uL (0.1-1.0); NEUTROPHILS # (AUTO) 4.9 K/uL (1.8-7.7); NEUTROPHILS % (AUTO) 63.5 % (40.0-77.0); PLATELET COUNT (AUTO) 259 K/uL (130-400); RED BLOOD CELL COUNT(AUTO) 4.21 MIL/uL (4.50-6.20); RED CELL DISTRIBUTION WIDTH 12.4 % (11.0-15.5); WHITE BLOOD COUNT (AUTO) 7.7 K/uL (4.8-10.8)
[2023-11-25 05:48] LABS: BILIRUBIN,TOTAL 0.2 mg/dL (0.2-1.0); CREATININE 1.8 mg/dL (0.5-1.3); PHOSPHORUS 3.5 mg/dL (2.5-4.9); TOTAL PROTEIN, SERUM 5.8 g/dL (6.0-8.3)
[2023-11-25 07:07] LABS: HEMOGLOBIN A1C 10.9 % (4.0-6.0)
[2023-11-25] MEDS: ASPIRIN 81 MG EC TAB PO SCH (09:25)
[2023-11-25] MEDS: atorVAStatin 40 MG TABLET PO SCH (09:25)
[2023-11-25] MEDS: cloPIDOgrel 75MG TAB PO SCH (09:26)
[2023-11-26] VITALS: BP 144/89; PULSE 85; RESP 16; TEMP 98.8
[2023-11-26 04:00] VITALS: BP 143/79; PULSE 81; RESP 18; TEMP 98.2
[2023-11-26 05:15] LABS: HEMATOCRIT 42.2 % (42-54); MEAN CORPUSCULAR HEMOGLOBIN 30.6 pg (27.0-33.0); MEAN CORPUSCULAR HGB CONC 33.2 g/dL (32.0-36.0); MEAN CORPUSCULAR VOLUME 92.1 fL (79-99); RED BLOOD CELL COUNT(AUTO) 4.58 MIL/uL (4.50-6.20); RED CELL DISTRIBUTION WIDTH 12.6 % (11.0-15.5)
[2023-11-26 05:28] LABS: ALBUMIN 2.3 g/dL (3.5-5.0); BILIRUBIN,TOTAL 0.3 mg/dL (0.2-1.0); CREATININE 1.9 mg/dL (0.5-1.3); PHOSPHORUS 3.2 mg/dL (2.5-4.9); POTASSIUM 4.2 mmol/L (3.5-5.1); TOTAL PROTEIN, SERUM 6.5 g/dL (6.0-8.3)
[2023-11-26 07:47] VITALS: BP 159/81; PULSE 91; RESP 17; TEMP 97.8
[2023-11-26 10:15] VITALS: O2SAT 96
[2023-11-26] MEDS: CEFTRIAXONE 2GM VIAL IVPB SCH (10:24)
[2023-11-26 12:00] VITALS: BP 140/80; PULSE 78; RESP 17; TEMP 98.7
[2023-11-26] MEDS ORDERED: CEPH500T PO (13:49)
[2023-11-26] MEDS ORDERED: INSULIN humuLIN R 100 UNIT/ML 3ML SQ SCH (17:00)
== END 2023-11-26 14:15 | disposition left against medical advice (07) | DRG 690 ==
LOC: EDH 13:56 → EDHIP 13:57 → 4DH 11-23 02:49
PROVIDERS: ADMIT Internal Medicine; ATTEND Internal Medicine
DX: N30.00 Acute cystitis without hematuria (principal); N17.9 Acute kidney failure, unspecified; E87.1 Hypo-osmolality and hyponatremia; E87.5 Hyperkalemia; I12.9 Hypertensive chronic kidney disease with stage 1 through stage 4 chronic kidney disease, or unspecified chronic kidney disease; E11.22 Type 2 diabetes mellitus with diabetic chronic kidney disease; H54.3 Unqualified visual loss, both eyes; E66.9 Obesity, unspecified; E88.09 Other disorders of plasma-protein metabolism, not elsewhere classified; E11.65 Type 2 diabetes mellitus with hyperglycemia; Z68.31 Body mass index [BMI] 31.0-31.9, adult; E11.649 Type 2 diabetes mellitus with hypoglycemia without coma; Z53.29 Procedure and treatment not carried out because of patient's decision for other reasons; E78.00 Pure hypercholesterolemia, unspecified; I25.10 Atherosclerotic heart disease of native coronary artery without angina pectoris; N18.9 Chronic kidney disease, unspecified; Z79.899 Other long term (current) drug therapy; Z95.5 Presence of coronary angioplasty implant and graft
CPT/HCPCS: 36415; 76770; 80048; 80053; 81001; 82948; 83036; 83735; 84100; 84443; 84550; 85025; 85027; 87086; 94640; 96375; 99291; G0378; J0360; J0612; J0696; J1815; J7070

== ENCOUNTER 2024-02-24 19:30 | Inpatient (IN) | payer BC ==
[~2024-02-24] VITALS: Ht 175.3 cm; Wt 102.7 kg
[~2024-02-24 19:30] MED LIST changes: +ATOR40TA69 PO; +CEPH500T PO; -FURO40TA7 PO; -HYDR-3420 PO; -SUCR1TAB28 PO
[2024-02-24 20:56] LABS: BASOPHILS # (AUTO) 0.03 K/uL (0.00-0.20); BASOPHILS % (AUTO) 0.2 % (0.0-5.0); EOSINOPHILS # (AUTO) 0.14 K/uL (0.00-0.70); EOSINOPHILS % (AUTO) 1.1 % (0.0-8.0); HEMATOCRIT 34.5 % (42-54); IMMATURE GRANULOCYTE ABSOLUTE 0.13 K/uL (0-1); LYMPHOCYTES # (AUTO) 2.1 K/uL (1.0-4.8); LYMPHOCYTES % (AUTO) 16.9 % (21.0-51.0); MEAN CORPUSCULAR HEMOGLOBIN 30.6 pg (27.0-33.0); MEAN CORPUSCULAR VOLUME 92.5 fL (79-99); MONOCYTES % (AUTO) 7.5 % (3.0-13.0); NEUTROPHILS # (AUTO) 9.3 K/uL (1.8-7.7); NEUTROPHILS % (AUTO) 73.3 % (40.0-77.0); PLATELET COUNT (AUTO) 342 K/uL (130-400); RED BLOOD CELL COUNT(AUTO) 3.73 MIL/uL (4.50-6.20); RED CELL DISTRIBUTION WIDTH 12.9 % (11.0-15.5); WHITE BLOOD COUNT (AUTO) 12.7 K/uL (4.8-10.8)
[2024-02-24 21:04] LABS: CREATININE 2.8 mg/dL (0.5-1.3); POTASSIUM 5.6 mmol/L (3.5-5.1)
[2024-02-24 21:27] LABS: B-TYPE NATRIURETIC PEPTIDE 733 pg/mL (0-100)
[2024-02-24 21:38] LABS: INFLUENZA TYPE A Negative For Type A (NEGATIVE); INFLUENZA TYPE B Negative For Type B (NEGATIVE)
[2024-02-24 21:39] LABS: COVID19 (SARS ANTIGEN RAPID) PRESUMPTIVE NEGATIVE (NEGATIVE)
[2024-02-24] MEDS: cefTRIAXone 1G VIAL IVPB ONE (22:04)
[2024-02-24] MEDS: NA ZIRCON CYCLOSIL(LOKELMA 10GM) PO ONE ×2 (22:04→22:34)
[2024-02-24 22:07] VITALS: PULSE 90; RESP 20
[2024-02-24] MEDS: ALBUTEROL 0.083% 2.5 MG/3 ML INH IH SCH (22:07)
[2024-02-24] MEDS: INSULIN humuLIN R 100 UNIT/ML 3ML IV ONE (22:10)
--- NOTE | 2024-02-24 22:19 | HP ---
History of Present Illness Reason for Visit: sob Referring MD: self-referral History of Present Illness Mr. Zarate is a 49-year-old male that was seen and examined today on 01/30. Patient is a good historian and personal health. Patient's provider Vitaly is at bedside. Patient reports that he came to the emergency department with a chief complaint of cough. Onset was two weeks ago. Location is to lungs. Duration is on and off. Character is described as nonproductive. There was no alleviating. There was no aggravating factors. Patient reports associated shortness of breath with coughing. Today in the emergency department WBCs 12.7, creatinine 2.8, BUN 30, GFR 27, glucose 392 mg/dL, BNP 733, chest x-ray shows right upper lobe consolidation. Emergency room physician recommended that patient be admitted with a diagnosis of pneumonia. 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 Patient denies alcohol use. Patient denies recreational drug use. Patient lives in a residence that is owned by his significant other Michi Renee. Patient states he is currently unable to work due to his blindness. Patient has good access to healthcare through insurance. . Patient is financially assisted by his significant other. Patient denies difficulty paying his bills. Patient is typically independent of his ADLs.] SURGICAL HISTORY: [Denies] Review of Systems General: No Fever, No Chills, No Night Sweats, No Fatigue, No Malaise, No Appetite, No Other HEENT: No Head Aches, No Visual Changes, No Eye Pain, No Ear Pain, No Dysphasia, No Sinus Congestion, No Post Nasal Drip, No Sore Throat, No Other Pulmonary: Dyspnea, Cough; No Pleuritic Chest Pain, No Other Cardiovascular: No: Chest Pain, Palpitations, Orthopnea, Paroxysmal Noc. Dyspnea, Edema, Lt Headedness, Other Gastrointestinal: No: Nausea, Vomiting, Abdominal Pain, Diarrhea, Constipation, Melena, Hematochezia, Other Genitourinary: No Dysuria, No Frequency, No Incontinence, No Hematuria, No Retention, No Other Musculoskeletal: No: other, neck pain, shoulder pain, arm pain, back pain, hand pain, leg pain, foot pain Skin: No Urticaria, No Rash, No Other Neurological: No: Weakness, Numbness, Incoordination, Change in speech, Confusion, Seizures, Other Allergies: Coded Allergies: No Known Drug Allergies (Unverified Allergy, Unknown, 09/07/21) Scheduled Aspirin (Aspirin 81 Mg Ectab), 81 MG PO DAILY, (Reported) Atorvastatin Calcium (Lipitor), 40 MG PO DAILY, (Reported) Carvedilol (Coreg), 6.25 MG PO BID, (Reported) Cephalexin (Cephalexin), 500 MG PO Q12H Clopidogrel Bisulfate (Plavix), 75 MG PO DAILY, (Reported) Folic Acid/Vitamin B Comp W-C (Nephro-Sandy Tablet), 0.8 MG PO DAILY, (Reported) Insulin NPH Hum/Reg Insulin Hm (Novolin 70-30 Flexpen), 40 UNIT SQ DAILY, (Reported) Exam Vital Signs Vital Signs Date Time Temp Pulse Resp B/P (MAP) Pulse Ox O2 Delivery O2 Flow Rate FiO2 02/24/24 22:00 99.0 84 15 168/103 95 Room Air* 0 21 General Appearance: Alert, Oriented X3, Cooperative, mild distress, Other (Bilateral eye blindness) HEENT: Atraumatic Respiratory: Normal air movement, NL respiratory effort, Other (Right upper lobe rhonchi) Cardiovascular: Regular rate, Regular rhythm, Normal S1, Normal S2 Abdominal: Normal bowel sounds, Soft, No tenderness Extremities: No edema Skin: No significant lesion Neuro: Normal speech, Strength at 5/5 X4 ext, Sensation intact, Cranial nerves 3-12 NL Psych/Mental Status: Mental status NL, Mood NL, Thoughts/Content NL Assessment/Plan ASSESSMENT: [ Pneumonia, POA Leukocytosis, POA Uncontrolled Diabetes mellitius type2, POA JENNIFER on CKD, POA, today creatinine 2.8, 11/26/2023 creatinine 1.9 Elevated BNP, POA, Stage III diastolic dysfunction by 2D echo on 01/15/2022 with LVEF 45-50% Mild hyperkalemia, POA Hypertension Hyperlipidemia Bilateral eye blindness PLAN: [ Admit patient to medical floor as inpatient status. Place patient on telemetry monitoring. Empiric antibiotic therapy with doxycycline and Rocephin. Check sputum culture, follow up with the results. Check blood culture, follow up with the results. Check procalcitonin, follow up with the results. Check lactic acid, follow up with the results. DuoNebs every 6 hours Supportive measures with the guaifenesin, Tylenol. Check hemoglobin A1c in a.m. Glucometer checks a.c. and HS 1800 ADA diet Humulin R sliding scale 1. Calculate FENA Check urine sodium, creatinine, osmolality Avoid nephrotoxic agents when possible Renally dose all medications when possible Consult Nephrology Service for evaluation and recommendations Monitor patient's labs. Weight patient daily. Monitor intake and output. Gentle IV fluid maintenance therapy lactated Ringer's at 75 mL/HR, discontinue if recommended by nephrology service. Check 2D echo in a.m., follow up with the results Reviewed last 2D echo from 01/15/2022 which showed LVEF 45-50 with stage III diastolic dysfunction Administer Lokelma 10 g by mouth times 1. Consider resuming home medications once they are reconciled. For now, Hydralazine 10 mg IV every 4 hours for systolic blood pressure greater than 160 mmHg GI prophylaxis, Protonix 40 mg by mouth once daily. DVT prophylaxis, heparin 5000 units subcutaneously twice daily. ADVANCED CARE PLANNING 1. Which of the following were discussed? Hospice Care - Yes Therapeutic options - Yes Advance Directives - Yes-patient states he does not have any advanced directives in place at this time, however his significant other can make decisions for him if he becomes unable. Other discussions -patient wishes to remain a full code at this time. 2. Discussed with who? Patient 3. Voluntary nature of this service was explained to the patient? Yes 4. Amount of time spent - ____17 minutes___ 5. Reviewed by Physician? (if this service was performed by NPP) Yes This document was generated in part using voice recognition software, occasional wrong word or sound alike substitutions may have occurred due to the inherent limitations of voice recognition software. Read the chart carefully and recognize using context, where the substitutions have occurred. Although every effort was made to edit the content, podiatry doctor and typing errors may occur ATTESTATION BY PHYSICIAN I have seen and examined the patient. I reviewed the documentation, medical decision making, and treatment plan as noted by the mid-level provider above. I agree with the findings and plan of care. LEROY MCGREGOR [facility] Feb 24, 2024 22:19
[2024-02-24] MEDS ORDERED: ondanSETRON 4MG INJ IV PRN (22:30)
[2024-02-24] MEDS ORDERED: morPHINE 2 MG SYG IVP PRN (22:30)
[2024-02-24] MEDS ORDERED: guaiFENesin SUGAR-FREE 100 MG/5 ML UDCUP PO PRN (22:30)
[2024-02-24] MEDS ORDERED: acetaMINOPHEN 325 MG TAB PO PRN (22:30)
[2024-02-24] MEDS: hydrALAZine 20MG/ML VIAL IV PRN (22:55)
[2024-02-24] MEDS: AZITHROMYCIN 500MG+NS 250ML 250 ML IV ONE (22:58)
--- NOTE | 2024-02-24 23:01 | ERN ---
ED Note History of Present Illness Stated Complaint: COUGH, SOB, FEVER X 2 DAYS Chief Complaint: Flu Symptoms Time Seen by MD: 19:44 Time Seen by Midlevel: 19:44 Dictation: The patient is a 49-year-old male with a history of diabetes, CAD, CKD who pres ents to the emergency department with complaints of 10 days of shortness of breath, that is worse with laying down. Nonproductive cough, chills. Patient denies any chest pain or fevers. Allergies: Coded Allergies: No Known Drug Allergies (Unverified Allergy, Unknown, 09/07/21) Home Meds Active Scripts Cephalexin (Cephalexin) 500 Mg Tablet, 500 MG PO Q12H, #6 TAB Prov:WILLAM ESPARZA AGPCNP 11/26/23 Reported Medications Atorvastatin Calcium (LIPITOR) 40 Mg Tablet, 40 MG PO DAILY, TAB 11/24/23 Insulin NPH Hum/Reg Insulin Hm (Novolin 70-30 Flexpen) 100 Unit/1 Ml Insuln.pen, 40 UNIT SQ DAILY, SYRINGE 01/15/22 Clopidogrel Bisulfate (Plavix) 75 Mg Tablet, 75 MG PO DAILY, TAB 01/15/22 Folic Acid/Vitamin B Comp W-C (Nephro-Sandy Tablet) 0.8 Mg Tablet, 0.8 MG PO DAILY, TAB 01/15/22 Carvedilol (Coreg) 6.25 Mg Tablet, 6.25 MG PO BID, TAB 01/15/22 Aspirin (ASPIRIN 81 MG ECTAB) 81 Mg Ectab, 81 MG PO DAILY, TAB.EC 01/15/22 Past Medical History Past Medical History: CHF, Diabetes-Type II, Heart Disease, Hypertension, Other Additional Past Medical Hx: BILATERAL BLINDNESS Surgical History: Other Surgical History Other: PREVIOUS STENT PLACEMENT Family History: Negative Social History: Negative, Lives with family, Other RN Note Reviewed/Agreed w/PFSH: Yes Review of System Dictation Constitutional: Negative for fever, and weight loss positive for chills Eyes: Negative for injury, pain,redness, and discharge ENT: Negative for injury,pain or swelling Cardiovascular: Negative for chest pain, palpitations, and edema Respiratory: Negative for , and wheezing, positive for shortness of breath, cough Abdomen/GI: Negative for abdominal pain, nausea, vomiting, diarrhea, and constipation Back: Negative for injury and pain : Negative for injury, bleeding and discharge MS/Extremity: Negative for injury and deformity Skin: Negative for rash, and discoloration Neuro: Negative for headache, weakness, numbness, tingling, and seizure Psych: Negative for suicide ideation, homicidal ideation, and hallucinations Initial Vital Sign VS Vital Signs Date Time Temp Pulse Resp B/P (MAP) Pulse Ox O2 Delivery O2 Flow Rate FiO2 02/24/24 19:31 99.3 75 15 123/76 95 Room Air* 0 21 Physical Exam Dictation Vital Signs reviewed General Appearance: Alert, oriented x 3, no acute distress, well developed, nourished. Head and Face: non-traumatic. Eyes:, pink conjunctivas, eyelid no trauma, anterior chamber with arcus senilis. Ears: Pinnas intact and no signs of trauma or erythema ear canals clear and no discharge TM no erythema Nose: No discharge, no bleeding. Oropharynx: Mouth normal, tongue pink. pharynx clear,no erythema, tonsils no exudates, no abscesses noted, mucous membrane moist Neck: Supple, non-tender, no thyromegaly, no masses, no JVD, no bruits Breast:Deferred Chest:No tenderness, no crepitus, no paradoxical movement, no retractions Lungs:Clear, well-ventilated, symmetric, no rales, no wheezing, no rhonchi, no stridor, good breath sounds bilaterally Heart: Regular rate, regular rhythm, no murmur, no gallops Vascular: no peripheral edema, Abdomen: Soft, positive bowel sounds, nondistended, no guarding, nontender, no rebound, no masses no hepatomegaly, no splenomegaly, no Love's sign, no hernias. Rectal: Deferred Genital: Deferred Neurological: Normal speech, motor function intact, sensory function intact Musculoskeletal: Neck nontender, full range of motion, back nontender, full range of motion, Extremities: nontender, full range of motion Skin: Color pink, dry, no turgor, no rash, no lacerations, no abrasions, no contusions. Lymphatic: Deferred Results (Laboratory/Radiology) Laboratory/Radiology Laboratory Tests Test 02/24/24 19:44 02/24/24 21:11 White Blood Count 12.7 K/uL (4.8-10.8) H Red Blood Count 3.73 MIL/uL (4.50-6.20) L Hemoglobin 11.4 g/dL (14.0-18.0) L Hematocrit 34.5 % (42-54) L Mean Corpuscular Volume 92.5 fL (79-99) Mean Corpuscular Hemoglobin 30.6 pg (27.0-33.0) Mean Corpuscular Hemoglobin Concent 33.0 g/dL (32.0-36.0) Red Cell Distribution Width 12.9 % (11.0-15.5) Platelet Count 342 K/uL (130-400) Mean Platelet Volume 11.9 fL (7.5-10.5) H Immature Granulocyte % (Auto) 1.0 % (0-1) Neutrophils (%) (Auto) 73.3 % (40.0-77.0) Lymphocytes (%) (Auto) 16.9 % (21.0-51.0) L Monocytes (%) (Auto) 7.5 % (3.0-13.0) Eosinophils (%) (Auto) 1.1 % (0.0-8.0) Basophils (%) (Auto) 0.2 % (0.0-5.0) Neutrophils # (Auto) 9.3 K/uL (1.8-7.7) H Lymphocytes # (Auto) 2.1 K/uL (1.0-4.8) Monocytes # (Auto) 1.0 K/uL (0.1-1.0) Eosinophils # (Auto) 0.14 K/uL (0.00-0.70) Basophils # (Auto) 0.03 K/uL (0.00-0.20) Absolute Immature Granulocyte (auto 0.13 K/uL (0-1) Nucleated Red Blood Cells 0.0 % (0.0-0.19) Sodium Level 131 mmol/L (136-145) L Potassium Level 5.6 mmol/L (3.5-5.1) H Chloride Level 102 mmol/L (101-111) Carbon Dioxide Level 25 mmol/L (21-32) Blood Urea Nitrogen 30 mg/dL (7-18) H Creatinine 2.8 mg/dL (0.5-1.3) H Glomerular Filtration Rate Calc 27 mL/min (>90) Random Glucose 392 mg/dL (70-105) H Total Calcium 8.6 mg/dL (8.5-10.1) Troponin I High Sensitivity 46 ng/L (4-75) B-Type Natriuretic Peptide 733 pg/mL (0-100) H Influenza Type A Antigen Negative For Type A Influenza Type B Antigen Negative For Type B SARS-CoV-2 Antigen (Rapid) PRESUMPTIVE NEGATIVE Labs Reviewed?: Yes EKG: (+) rhythm EKG Comment: EKG 02/24/20242055 ventricular rate 86, regular rate and rhythm, sinus rhythm, abnormal T-wave, no STEMI ED Course ED Course Orders Procedure Category Date Status Time Covid19 (Sars Antigen LAB 02/24/24 Complete Rapid) 20:49 Influenza Type A & B, LAB 02/24/24 Complete Rapid 20:49 Chest 1vw RAD 02/24/24 Taken 20:49 Cbc With Differential LAB 02/24/24 Complete 20:49 Troponin I High LAB 02/24/24 Complete Sensitivity 20:49 12 Lead Ekg Tracing- EKG 02/24/24 Logged Technical 20:49 Basic Metabolic Panel LAB 02/24/24 Complete 20:49 B-Type Natriuretic LAB 02/24/24 Complete Peptide 20:49 Insulin Regular, PHA 02/24/24 Complete Human 3ml (Humulin R 22:00 Albuterol 0.083% PHA 02/24/24 Complete 2.5mg/3ml (Proventil 22:00 Na Zircon PHA 02/24/24 Complete Cyclosil-Lokelma 10g 22:00 Ceftriaxone 1g Vial PHA 02/24/24 Complete (Rocephine 1g Inj) 22:00 Azithromycin 500mg+Ns PHA 02/24/24 In Process 250ml (Azithromyci 22:30 Admit Orders ADM 02/24/24 Transmitted 22:12 Consistent Carb DIET 02/25/24 Transmitted Breakfast Activity: Ad Nirmala CPOE 02/24/24 Transmitted 22:12 Condition: CPOE 02/24/24 Transmitted 22:12 Daily Weights CPOE 02/24/24 Transmitted 22:12 I&O Q Shift CPOE 02/24/24 Transmitted 22:12 Nurse To Enter Home CPOE 02/24/24 Transmitted Medication 22:12 Oxygen By Nc/Pulse Ox CPOE 02/24/24 Transmitted 22:12 Telemetry Monitoring CPOE 02/24/24 Transmitted 22:12 Vital Signs(Adult CPOE 02/24/24 Transmitted Hospitalist) 22:12 Procalcitonin LAB 02/24/24 Logged 22:12 Lactic Acid LAB 02/24/24 Logged 22:12 Basic Metabolic Panel LAB 02/25/24 Verified 04:00 Cbc With Differential LAB 02/25/24 Verified 04:00 Magnesium LAB 02/25/24 Verified 04:00 Phosphorus LAB 02/25/24 Verified 04:00 Urine Creatinine LAB 02/24/24 Logged Random 22:12 Urine Sodium,Random LAB 02/24/24 Logged 22:12 Osmolality Urine LAB 02/24/24 Logged 22:12 Urinalysis Profile LAB 02/24/24 Logged 22:12 Acetaminophen 325 Tab PHA 02/24/24 In Process (Tylenol 325mg Tab 22:30 Heparin 5,000 Unit PHA 02/25/24 In Process Vial (Heparin 5,000 U 09:00 Hydralazine 20mg Inj PHA 02/24/24 In Process (Apresoline 20mg In 22:30 Ipratropium/Albuterol PHA 02/25/24 In Process Neb (Duoneb) 00:00 Pantoprazole 40mg Tab PHA 02/25/24 In Process (Protonix 40mg Tab 09:00 Ondansetron 4mg Inj PHA 02/24/24 In Process (Zofran 4mg Inj) 22:30 Guaifenesin Sug-Jerod PHA 02/24/24 In Process 100 Mg/5ml (Robituss 22:30 Respiratory Cult OLEG 02/24/24 Logged W/Gram Stain 22:12 Blood Cult OLEG 02/24/24 Logged 22:12 Lactated Ringers PHA 02/26/24 In Process 1000ml (Lactated 05:30 Initiate ANGY 02/24/24 In Process Hyperglycemia Protoco 22:12 Insulin Regular, PHA 02/25/24 In Process Human 3ml (Humulin R 07:30 Na Zircon PHA 02/24/24 Complete Cyclosil-Lokelma 10g 22:30 Morphine 2mg Syg PHA 02/24/24 In Process (Morphine 2mg Syg) 22:30 Ceftriaxone 1g Vial PHA 02/25/24 In Process (Rocephine 1g Inj) 22:30 Doxycycline 100mg+Ns PHA 02/25/24 In Process 250ml (Doxycycline 10:00 Current Medications Medications (Trade) Dose Ordered Sig/Jean Pierre Route PRN Reason Start Time Stop Time Status Last Admin Dose Admin Acetaminophen (TYLenol 325MG TAB) 650 mg Q6H PRN PO TEMPERATURE GREATER THAN 101.5 02/24/24 22:30 03/25/24 22:29 Albuterol (DUOneb) 1 udvial [id number] IH 02/25/24 00:00 03/26/24 00:00 Albuterol Sulfate (Proventil 0.083% 2.5mg/3ml) 10 mg ONCE IH 02/24/24 22:00 02/24/24 22:24 DC 02/24/24 22:07 Azithromycin 250 ml @ 125 mls/hr ONCE ONCE IV 02/24/24 22:30 02/25/24 00:29 Ceftriaxone Sodium (ROCEphine 1G INJ) 1 gm ONCE ONCE IVPB 02/24/24 22:00 02/24/24 22:01 DC 02/24/24 22:04 Ceftriaxone Sodium (ROCEphine 1G INJ) 1 gm Q24H IV 02/25/24 22:30 03/06/24 22:29 Doxycycline Hyclate 250 ml @ 125 mls/hr Q12H IV 02/25/24 10:00 03/06/24 09:59 Guaifenesin (RobiTUSSin SUGAR-FREE 100 MG/ 5 ML UDCUP) 400 mg Q4H PRN PO cough 02/24/24 22:30 03/25/24 22:29 Heparin Sodium (Porcine) (HEParin 5,000 UNIT VIAL) 5,000 unit BID SQ 02/25/24 09:00 03/26/24 08:59 Hydralazine HCl (APRESOLine 20MG INJ) 10 mg Q6H PRN IV For:SBP above 160;DBP above 90 02/24/24 22:30 03/25/24 22:29 Insulin Human Regular (humuLIN R 100 UNIT/ML 3ML) 5 unit ONCE ONCE IV 02/24/24 22:00 02/24/24 22:01 DC 02/24/24 22:10 Insulin Human Regular (humuLIN R 100 UNIT/ML 3ML) INSULIN SLIDING SCAL... ACHS SQ 02/25/24 07:30 03/26/24 07:29 Lactated Ringer's 1,000 ml @ 75 mls/hr [id number] IV 02/26/24 05:30 03/27/24 05:29 Morphine Sulfate (morPHINE 2MG SYG) 2 mg Q4H PRN IVP SEVERE PAIN (7-10) 02/24/24 22:30 03/02/24 22:29 Ondansetron HCl (zoFRAN 4MG INJ) 4 mg Q6H PRN IV NAUSEA/VOMITING 02/24/24 22:30 03/25/24 22:29 Pantoprazole Sodium (PROTonix 40MG TAB) 40 mg DAILY PO 02/25/24 09:00 03/26/24 08:59 Sodium Zirconium Cyclosilicate (Lokelma 10gm Powder) 10 gm ONCE ONCE PO 02/24/24 22:00 02/24/24 22:01 DC 02/24/24 22:04 Sodium Zirconium Cyclosilicate (Lokelma 10gm Powder) 10 gm ONCE ONCE PO 02/24/24 22:30 02/24/24 22:31 DC Vital Signs Date Time Temp Pulse Resp B/P (MAP) Pulse Ox O2 Delivery O2 Flow Rate FiO2 02/24/24 22:07 90 20 02/24/24 22:00 99.0 84 15 168/103 95 Room Air* 0 21 02/24/24 20:30 99.0 84 15 164/78 95 Room Air* 0 21 02/24/24 19:32 99.3 75 15 123/76 95 Room Air 0 02/24/24 19:31 99.3 75 15 123/76 95 Room Air* 0 21 Medical Decision Making MDM MDM: The patient is a 49-year-old male with a history of diabetes, CAD, CKD who presents to the emergency department with complaints of 10 days of shortness of breath, that is worse with laying down. Nonproductive cough, chills. Patient denies any chest pain or fevers. CBC showed mild leukocytosis, normocytic anemia, chemistry showed hyperkalemia, hyponatremia, elevated blood glucose, GFR of 27, negative troponin, elevated BNP. X-ray showed some consolidation to right upper lung. We will be treated with the antibiotics and admitted for further management. Differential diagnosis: COVID 19 infection, pneumonia, ACS, pneumothorax, electrolyte imbalance Comorbidities: Diabetes, CAD, CKD Tests considered and not ordered secondary to shared decision making include: none Previous outside records reviewed: none Risk of complication and/or morbidity or mortality of patient management: The patient meets criteria for admission. Need for emergency major/minor surgery: No There are no social concerns with this patient. I independently interpreted the tests I ordered (labs, urinalysis, etc.). I discussed the case with the hospitalist for admission. Buck SHEFFIELD who accepts admission. I discussed the case with the following specialists: none. Historian: [email or web address]. I independently interpreted imaging studies and EKGs that I ordered (US, CT, XR, EKG, etc.). External chart review: none. Medical management and examination interpretation discussions were had by me with other qualified healthcare professionals as indicated for the patient's care. DX & DISP Disposition: Inpatient Decision to Admit Date: Feb 24, 2024 Decision to Admit Time: 22:12 Departure Impression: Primary Impression: Hyperkalemia Additional Impressions: Acute on chronic renal failure, Pneumonia, Cough, Leukocytosis, Anemia, Uncontrolled diabetes mellitus with hyperglycemia Condition: Stable Referrals: LINDA MEHTA MD (PCP) I have reviewed the case, and I agree with, Diagnosis and Plan KIERAN GUILLORYP Feb 24, 2024 23:01
[2024-02-25] VITALS (10 sets, daily range): BP systolic 133–184; BP diastolic 84–102; PULSE 74–106; RESP 18–20; TEMP 98.2–98.9; O2SAT 95–96
[2024-02-25] MEDS: IpraTROPium/alBUTERol SULFATE 3 ML SOLUTION IH SCH (00:44)
--- NOTE | 2024-02-25 06:06 | EKG ---
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
[2024-02-25] MEDS: INSULIN humuLIN R 100 UNIT/ML 3ML SQ SCH (07:30)
[2024-02-25 07:54] LABS: BASOPHILS # (AUTO) 0.03 K/uL (0.00-0.20); BASOPHILS % (AUTO) 0.3 % (0.0-5.0); EOSINOPHILS # (AUTO) 0.18 K/uL (0.00-0.70); EOSINOPHILS % (AUTO) 1.6 % (0.0-8.0); HEMATOCRIT 33.3 % (42-54); IMMATURE GRANULOCYTE ABSOLUTE 0.12 K/uL (0-1); LYMPHOCYTES % (AUTO) 18.3 % (21.0-51.0); MEAN CORPUSCULAR HEMOGLOBIN 29.9 pg (27.0-33.0); MEAN CORPUSCULAR HGB CONC 32.7 g/dL (32.0-36.0); MEAN CORPUSCULAR VOLUME 91.5 fL (79-99); MONOCYTES # (AUTO) 0.9 K/uL (0.1-1.0); MONOCYTES % (AUTO) 7.6 % (3.0-13.0); NEUTROPHILS # (AUTO) 7.9 K/uL (1.8-7.7); NEUTROPHILS % (AUTO) 71.1 % (40.0-77.0); PLATELET COUNT (AUTO) 386 K/uL (130-400); RED BLOOD CELL COUNT(AUTO) 3.64 MIL/uL (4.50-6.20); RED CELL DISTRIBUTION WIDTH 12.9 % (11.0-15.5); WHITE BLOOD COUNT (AUTO) 11.2 K/uL (4.8-10.8)
[2024-02-25 08:16] LABS: CREATININE 2.6 mg/dL (0.5-1.3); MAGNESIUM 1.9 mg/dL (1.80-2.40); PHOSPHORUS 3.4 mg/dL (2.5-4.9); POTASSIUM 3.6 mmol/L (3.5-5.1)
--- NOTE | 2024-02-25 08:55 | HMCIMG ---
Exam Type: CHEST 1VW Clinical Information: sob Comparison: None Findings: Ill-defined infiltrates of the right upper lobe are seen consistent with pneumonia. The heart is normal in size. The bony and soft tissue structures show no worrisome pathology. IMPRESSION: Findings consistent with pneumonia. Follow-up is advised.
[2024-02-25] MEDS: HEParin 5,000 UNIT VIAL SQ SCH (09:42)
[2024-02-25] MEDS: DOXYCYCLINE 100MG+NS 250ML 250 ML IV SCH (09:42)
[2024-02-25] MEDS: PANTOPrazole 40 MG TAB DR PO SCH (09:42)
--- NOTE | 2024-02-25 11:29 | NUR ---
DCP Pt awake, alert, oriented X3 wolof speaking. Pt lives with spouse Sherita Blanco [phone]. PCP is Matthew Stevens. Pt has a cane to assist when ambulating, does not have home health services, but has been to [facility] for antibiotic and physical therapy. Anticipates discharge for home. However, if needs additional services would like to go to [facility]. Addendum: 02/25/24 at 1132 by DAMON BRITTON RN Amended: Links added.
--- NOTE | 2024-02-25 12:00 | PN ---
[facility] PROGRESS NOTE Date of Service: Feb 25, 2024 Time of Service: 11:53 SUBJECTIVE: 02/24 - patient is a 41-year-old male who was seen and examined in the ED 15 with a chief complaint of nonproductive cough that began 2 weeks ago patient denies any use of antibiotics. Chest x-ray shows a right upper lobe infiltrates suggestive pneumonia. Patient currently on ceftriaxone and doxycycline for treatment as well as DuoNebs. 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 Patient has a history of a stent placement due to a myocardial infarction 2-3 years ago. Currently patient denies any fever, nausea, weakness, vomiting, constipation, diarrhea. 2D echo results pending. 2D echo conducted on 01/15/2022 showed LVEF of 45-50% with stage III diastolic dysfunction. Awaiting recommendations per Nephrology due to acute kidney injury on chronic kidney disease. Remarkable labs white count 11.2 hemoglobin hematocrit are stable platelets 386. Electrolytes within normal rivera its. BUN 23 creatinine 2.6 GFR 30. We will continue to medically manage and monitor. We will follow recommendations per Nephrology. REVIEW OF SYSTEMS CONSTITUTIONAL: Denies fevers, chills, or night sweats. No unintentional weight loss reported. NEUROLOGICAL: Denies headache, amaurosis fugax, motor weakness, sensory deficit, vertigo/spinning sensation, gait abnormalities, or tremors. ENT: No hearing loss, otalgia, otorrhea, rhinitis, rhinorrhea, hoarseness, or sore throat. CARDIOVASCULAR: Denies any exertional angina, dyspnea on exertion, orthopnea, paroxysmal nocturnal dyspnea, palpitations, life-threatening arrhythmias, claudication. PULMONARY: Denies any shortness of breath, cough, phlegm/sputum, hemoptysis, pleuritic chest pain. SLEEP: Denies morning headaches, daytime somnolence or napping. Denies difficulty falling asleep, staying asleep, waking from sleep. Denies knowledge of snoring. GASTROINTESTINAL: Denies any type of dysphagia to either liquids or solids. Denies nausea, vomiting, pyrosis, early satiety, abdominal pain, diarrhea, constipation, or changes in stool consistency or caliber. Denies coffee-ground emesis, hematemesis, hematochezia, or melanotic stools. GENITOURINARY: Denies frequency, urgency, nocturia, hematuria or incontinence (Storage/Irritative symptoms.) Low urinary stream, straining to void, urinary intermittency or hesitancy, splitting of the voiding stream, terminal dribbling. ENDOCRINOLOGIC: Denies polyuria, polydipsia, polyphagia or heat/cold intolerances. HEMATOLOGIC: Denies thrombophilia/previous clots, or coagulopathy/bleeding disorders. ONCOLOGIC: Denies personal history of malignancy. DERMATOLOGIC: Denies rashes or pruritus. PSYCHIATRIC: Denies any suicidal or homicidal ideation. Denies hallucinations. PHYSICAL EXAM GENERAL APPEARANCE: The patient is awake, alert, and oriented, in no acute cardiopulmonary distress. NEUROLOGICAL: Cranial nerves II-XII grossly intact. Motor is 5/5 in bilateral upper and lower extremities proximal to distal. No sensory deficits. HEENT: Face is symmetric. Pupils are equal and reactive. Extraocular movements are intact. NECK: Supple. No JVD. No thyromegaly. No submental, submandibular, pre- /postauricular, occipital or supraclavicular lymphadenopathy. CHEST: Normal chest expansion. No Telemetry. LUNGS: Absence of any rales, rhonchi or any wheezing. CARDIOVASCULAR: Regular. S1 and S2 normal. No appreciable rubs, murmurs or gallops. ABDOMEN: Soft, nontender, and nondistended. There is no rebound, voluntary guarding, or rigidity. : Deferred. No Garsia. EXTREMITIES: Non-edematous and not cyanotic. No clubbing. Good capillary refill. SKIN: No skin breakdown. Vital Signs (last 8hr) Date Time Temp Pulse Resp B/P (MAP) Pulse Ox O2 Delivery O2 Flow Rate FiO2 02/25/24 10:41 98.2 93 18 115/81 95 Room Air* 0 02/25/24 07:40 98.2 82 18 150/85 96 Room Air* 0 02/25/24 04:00 98.2 86 18 159/85 95 Room Air LABS: Laboratory: Test 02/25/24 07:21 02/25/24 00:33 02/24/24 21:11 02/24/24 19:44 Range/Units White Blood Count 11.2 H 4.8-10.8 K/uL Red Blood Count 3.64 L 4.50-6.20 MIL/uL Hemoglobin 10.9 L 14.0-18.0 g/dL Hematocrit 33.3 L 42-54 % Mean Corpuscular Volume 91.5 79-99 fL Mean Corpuscular Hemoglobin 29.9 27.0-33.0 pg Mean Corpuscular Hemoglobin Concent 32.7 32.0-36.0 g/dL Red Cell Distribution Width 12.9 11.0-15.5 % Platelet Count 386 130-400 K/uL Mean Platelet Volume 11.2 H 7.5-10.5 fL Immature Granulocyte % (Auto) 1.1 H 0-1 % Neutrophils (%) (Auto) 71.1 40.0-77.0 % Lymphocytes (%) (Auto) 18.3 L 21.0-51.0 % Monocytes (%) (Auto) 7.6 3.0-13.0 % Eosinophils (%) (Auto) 1.6 0.0-8.0 % Basophils (%) (Auto) 0.3 0.0-5.0 % Neutrophils # (Auto) 7.9 H 1.8-7.7 K/uL Lymphocytes # (Auto) 2.0 1.0-4.8 K/uL Monocytes # (Auto) 0.9 0.1-1.0 K/uL Eosinophils # (Auto) 0.18 0.00-0.70 K/uL Basophils # (Auto) 0.03 0.00-0.20 K/uL Absolute Immature Granulocyte (auto 0.12 0-1 K/uL Nucleated Red Blood Cells 0.0 0.0-0.19 % Sodium Level 140 136-145 mmol/L Potassium Level 3.6 3.5-5.1 mmol/L Chloride Level 107 101-111 mmol/L Carbon Dioxide Level 27 21-32 mmol/L Blood Urea Nitrogen 23 H 7-18 mg/dL Creatinine 2.6 H 0.5-1.3 mg/dL Glomerular Filtration Rate Calc 30 >90 mL/min Random Glucose 138 #H 70-105 mg/dL Total Calcium 8.2 L 8.5-10.1 mg/dL Phosphorus Level 3.4 2.5-4.9 mg/dL Magnesium Level 1.90 1.80-2.40 mg/dL Lactic Acid Level 1.7 0.8-2.5 mmol/L Procalcitonin 0.17 0.05-0.5 ng/mL Influenza Type A Antigen Negative For Type A NEGATIVE Influenza Type B Antigen Negative For Type B NEGATIVE SARS-CoV-2 Antigen (Rapid) PRESUMPTIVE NEGATIVE NEGATIVE Troponin I High Sensitivity 46 4-75 ng/L B-Type Natriuretic Peptide 733 H 0-100 pg/mL Current Medications Medications (Trade) Dose Ordered Sig/Jean Pierre Route PRN Reason Start Time Stop Time Status Last Admin Dose Admin Acetaminophen (TYLenol 325MG TAB) 650 mg Q6H PRN PO TEMPERATURE GREATER THAN 101.5 02/24/24 22:30 03/25/24 22:29 Albuterol (DUOneb) 1 udvial [id number] IH 02/25/24 00:00 03/26/24 00:00 02/25/24 11:52 1 UDVIAL Albuterol Sulfate (Proventil 0.083% 2.5mg/3ml) 10 mg ONCE IH 02/24/24 22:00 02/24/24 22:24 DC 02/24/24 22:07 10 MG Ceftriaxone Sodium (ROCEphine 1G INJ) 1 gm Q24H IV 02/25/24 22:30 03/06/24 22:29 Doxycycline Hyclate 250 ml @ 125 mls/hr Q12H IV 02/25/24 10:00 03/06/24 09:59 02/25/24 09:42 125 MLS/HR Guaifenesin (RobiTUSSin SUGAR-FREE 100 MG/ 5 ML UDCUP) 400 mg Q4H PRN PO cough 02/24/24 22:30 03/25/24 22:29 Heparin Sodium (Porcine) (HEParin 5,000 UNIT VIAL) 5,000 unit BID SQ 02/25/24 09:00 03/26/24 08:59 02/25/24 09:42 5,000 UNIT Hydralazine HCl (APRESOLine 20MG INJ) 10 mg Q6H PRN IV For:SBP above 160;DBP above 90 02/24/24 22:30 03/25/24 22:29 02/24/24 22:55 10 MG Insulin Human Regular (humuLIN R 100 UNIT/ML 3ML) INSULIN SLIDING SCAL... ACHS SQ 02/25/24 07:30 03/26/24 07:29 02/25/24 11:43 8 UNIT Lactated Ringer's 1,000 ml @ 75 mls/hr [id number] IV 02/26/24 05:30 03/27/24 05:29 Morphine Sulfate (morPHINE 2MG SYG) 2 mg Q4H PRN IVP SEVERE PAIN (7-10) 02/24/24 22:30 03/02/24 22:29 Ondansetron HCl (zoFRAN 4MG INJ) 4 mg Q6H PRN IV NAUSEA/VOMITING 02/24/24 22:30 03/25/24 22:29 Pantoprazole Sodium (PROTonix 40MG TAB) 40 mg DAILY PO 02/25/24 09:00 03/26/24 08:59 02/25/24 09:42 40 MG DIAGNOSTICS / RADIOLOGY: [place] [id number] [address] IMAGING REPORT Signed PATIENT: SIGIFREDO ROJAS MR#: [id number] : 1975 SEX: M AGE: 49 LOCATION: [facility]IP ORDER 50 STATUS: ADM IN REPORT#: [id number] SERVICE 48 REASON: sob ORDERING PHYSICIAN: KIERAN GUILLORY PROCEDURE: CXR1VW - CHEST 1VW Exam Type: CHEST 1VW Clinical Information: sob Comparison: None Findings: Ill-defined infiltrates of the right upper lobe are seen consistent with pneumonia. The heart is normal in size. The bony and soft tissue structures show no worrisome pathology. IMPRESSION: Findings consistent with pneumonia. Follow-up is advised. 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 I reviewed the documentation, medical decision making, and treatment plan as noted by the resident provider above. I agree with the findings and plan of care. Ralf Mcgrath MD, PRIYA N Feb 25, 2024 12:00
--- NOTE | 2024-02-25 13:26 | HMCSR ---
APPROVED REPORT EXAM: Two-dimensional and M-mode echocardiogram with Doppler and color Doppler. INDICATION ICD: elevated bnp 2D Dimensions RVDd3.5 cmLVEF(%)69.3 (>50%)LVED Vol(simp.)139.0 mL IVSd0.8 (0.7-1.1cm)FS(%)39 %LVES Vol(simp.)70.0 mL LVDd3.9 (3.8-5.6cm)LA (2D)4.0 (1.6-4.0cm)LVEF(%, simp.)50 % PWd1.0 (0.7-1.1cm)Ao Root(2D)3.4 (2.0-3.7cm)LA ESV INDEX (4CH)30.00 mL/m2 IVSs1.2 cmLVOT diam2.2 (1.8-2.4cm)LA ESV INDEX (2CH)32.90 mL/m2 LVDs2.4 (2.5-4.0cm)IVC diam1.9 cmLA ESV INDEX (BP)32.00 mL/m2 PWs1.4 cm M-Mode Dimensions EPSS0.8 cm LA (MM)3.8 (1.6-4.0cm) Ao Root(MM)3.3 (2.0-3.7cm) Aortic Valve AoV VTI0.3 mAo Mean GR5.0 mmHgLVOT VTI0.24 m TORITO (VMAX)2.8 cm2AVA (VTI) 2.8 cm2 Mitral Valve MV E Vmax83.4 cm/sDECEL Ntpc898 ms MV A Vmax87.4 cm/sP 1/2 T75 ms E/A ratio1.0MVA (PHT)2.9 cm2 TDI E/E' Qxwokp69.4E/E' Sgyknxd17.8 Medial E' Peak V6.70 cm/sLateral E' Peak V7.70 cm/s Left Ventricle The left ventricle is normal size. Mid and distal hypokinesis severe Severe apical hypokinesis There is normal left ventricular wall thickness. LVEF is 40-45%. The left ventricular diastolic function is normal. Right Ventricle The right ventricle is normal size. The right ventricular systolic function is normal. Atria The left atrium size is normal. The right atrium is mildly dilated. Aortic Valve The aortic valve is normal in structure. No aortic regurgitation is present. There is no aortic valvu lar stenosis. Mitral Valve The mitral valve is normal in structure. There is no mitral valve regurgitation noted. There is no mi tral valve stenosis. Tricuspid Valve The tricuspid valve is normal in structure. There is no tricuspid valve regurgitation noted. Pulmonic Valve The pulmonary valve is normal in structure. There is no pulmonic valvular regurgitation. Great Vessels The aortic root is normal in size. The IVC is normal in size and collapses >50% with inspiration. Pericardium There is no pericardial effusion. Conclusion LVEF is 40-45%. Mid and distal hypokinesis severe Severe apical hypokinesis
--- NOTE | 2024-02-25 15:50 | CONS ---
NEPHROLOGY CONSULTATION NOTE Date/Time Patient Seen: Feb 25, 2024 [id number] Reason for Consultation: Cough, shortness of breath, renal failure HISTORY OF PRESENT ILLNESS: This is a 49 year old male with a past medical history of diabetes mellitus type 2, hypertension, hyperlipidemia, myocardial infarction , blindness to bilateral eyes, CKD, stage III diastolic dysfunction. He reports that he came to the emergency department with a chief complaint of cough for two weeks ago. In the emergency department WBCs 12.7, creatinine 2.8, BUN 30, GFR 27, glucose 392 mg/dL, BNP 733 Echocardiogram showed LVEF is 40-45%. Chest x-ray shows right upper lobe consolidation. Emergency room physician recommended that patient be admitted with a diagnosis of pneumonia. Influenza and COVID swabs were negative He has been started on antibiotics We has been consulted for renal failure. Renal function remains elevated Electrolytes are stable Hemoglobin is stable at 10.9. He was seen in the emergency room No family at the bedside REVIEW OF SYSTEMS: GENERAL: Positive for cough and shortness of breath NEUROLOGIC: Negative for any blurry vision, blind spots, double vision, facial asymmetry, dysphagia, dysarthria, hemiparesis, hemisensory deficits, vertigo, ataxia. HEENT: Negative for any head trauma, neck trauma, neck stiffness, photophobia, phonophobia, sinusitis, rhinitis. CARDIAC: Negative for any chest pain, dyspnea on exertion, paroxysmal nocturnal dyspnea, peripheral edema. PULMONARY: Negative for any shortness of breath, wheezing, COPD, or TB exposure. GASTROINTESTINAL: Negative for any abdominal pain, nausea, vomiting, bright red blood per rectum, melena. GENITOURINARY: Negative for any dysuria, hematuria, incontinence. INTEGUMENTARY: Negative for any rashes, cuts, insect bites. RHEUMATOLOGIC: Negative for any joint pains, photosensitive rashes, history of vasculitis or kidney problems. HEMATOLOGIC: Negative for any abnormal bruising, frequent infections or bleeding. PAST MEDICAL HISTORY: Diabetes mellitus type 2, hypertension, hyperlipidemia, myocardial infarction , blindness to bilateral eyes, CKD, stage III diastolic dysfunction with LVEF 45- 50% PAST SURGICAL HISTORY: Denies any past surgical history PAST SOCIAL HISTORY: Denies use of alcohol, tobacco or illicit drugs FAMILY HISTORY: Noncontributory PHYSICAL EXAM: GENERAL: Alert and oriented x 3. No acute distress. Well-nourished. EYES: EOMI. Anicteric. HENT: Moist mucous membranes. No scleral icterus. No cervical lymphadenopathy. LUNGS: Clear to auscultation bilaterally. No accessory muscle use. CARDIOVASCULAR: Regular rate and rhythm. No murmur. No JVD. ABDOMEN: Soft, non-tender and non-distended. No palpable masses. EXTREMITIES: No edema. Non-tender. SKIN: No rashes or lesions. Warm. NEUROLOGIC: No focal neurological deficits. CN II-XII grossly intact, but not individually tested. PSYCHIATRIC: Cooperative. Appropriate mood and affect. MEDICATIONS: [ ] Current Medications Medications (Trade) Dose Ordered Sig/Jean Pierre Route PRN Reason Start Time Stop Time Status Last Admin Dose Admin Acetaminophen (TYLenol 325MG TAB) 650 mg Q6H PRN PO TEMPERATURE GREATER THAN 101.5 02/24/24 22:30 03/25/24 22:29 Albuterol (DUOneb) 1 udvial [id number] IH 02/25/24 00:00 03/26/24 00:00 02/25/24 11:52 1 UDVIAL Albuterol Sulfate (Proventil 0.083% 2.5mg/3ml) 10 mg ONCE IH 02/24/24 22:00 02/24/24 22:24 DC 02/24/24 22:07 10 MG Ceftriaxone Sodium (ROCEphine 1G INJ) 1 gm Q24H IV 02/25/24 22:30 03/06/24 22:29 Doxycycline Hyclate 250 ml @ 125 mls/hr Q12H IV 02/25/24 10:00 03/06/24 09:59 02/25/24 09:42 125 MLS/HR Guaifenesin (RobiTUSSin SUGAR-FREE 100 MG/ 5 ML UDCUP) 400 mg Q4H PRN PO cough 02/24/24 22:30 03/25/24 22:29 Heparin Sodium (Porcine) (HEParin 5,000 UNIT VIAL) 5,000 unit BID SQ 02/25/24 09:00 03/26/24 08:59 02/25/24 09:42 5,000 UNIT Hydralazine HCl (APRESOLine 20MG INJ) 10 mg Q6H PRN IV For:SBP above 160;DBP above 90 02/24/24 22:30 03/25/24 22:29 02/24/24 22:55 10 MG Insulin Human Regular (humuLIN R 100 UNIT/ML 3ML) INSULIN SLIDING SCAL... ACHS SQ 02/25/24 07:30 03/26/24 07:29 02/25/24 11:43 8 UNIT Lactated Ringer's 1,000 ml @ 75 mls/hr [id number] IV 02/26/24 05:30 03/27/24 05:29 Morphine Sulfate (morPHINE 2MG SYG) 2 mg Q4H PRN IVP SEVERE PAIN (7-10) 02/24/24 22:30 03/02/24 22:29 Ondansetron HCl (zoFRAN 4MG INJ) 4 mg Q6H PRN IV NAUSEA/VOMITING 02/24/24 22:30 03/25/24 22:29 Pantoprazole Sodium (PROTonix 40MG TAB) 40 mg DAILY PO 02/25/24 09:00 03/26/24 08:59 02/25/24 09:42 40 MG Vital Signs (last 8hr) Date Time Temp Pulse Resp B/P (MAP) Pulse Ox O2 Delivery O2 Flow Rate FiO2 02/25/24 12:54 98.2 77 18 146/84 96 Room Air* 0 21 02/25/24 11:53 85 18 02/25/24 10:41 98.2 93 18 115/81 95 Room Air* 0 21 02/25/24 07:40 98.2 82 18 150/85 96 Room Air* 0 21 DIAGNOSTICS / RADIOLOGY: REASON: elevated bnp, stage III diastolic dysfunction 01/15/22 ORDERING PHYSICIAN: LEROY MCGREGOR PROCEDURE: ECHO [facility] - ECHO 2-D COMPLETE APPROVED REPORT EXAM: Two-dimensional and M-mode echocardiogram with Doppler and color Doppler. INDICATION ICD: elevated bnp 2D Dimensions RVDd 3.5 cm LVEF(%) 69.3 (>50%) LVED Vol(simp.) 139.0 mL IVSd 0.8 (0.7-1.1cm) FS(%) 39 % LVES Vol(simp.) 70.0 mL LVDd 3.9 (3.8-5.6cm) LA (2D) 4.0 (1.6-4.0cm) LVEF(%, simp.) 50 % PWd 1.0 (0.7-1.1cm) Ao Root(2D) 3.4 (2.0-3.7cm) LA ESV INDEX (4CH) 30.00 mL/m2 IVSs 1.2 cm LVOT diam 2.2 (1.8-2.4cm) LA ESV INDEX (2CH) 32.90 mL/m2 LVDs 2.4 (2.5-4.0cm) IVC diam 1.9 cm LA ESV INDEX (BP) 32.00 mL/m2 PWs 1.4 cm M-Mode Dimensions EPSS 0.8 cm LA (MM) 3.8 (1.6-4.0cm) Ao Root(MM) 3.3 (2.0-3.7cm) Aortic Valve AoV VTI 0.3 m Ao Mean GR 5.0 mmHg LVOT VTI 0.24 m TORITO (VMAX) 2.8 cm2 TORITO (VTI) 2.8 cm2 Mitral Valve MV E Vmax 83.4 cm/s DECEL Time 166 ms MV A Vmax 87.4 cm/s P 1/2 T 75 ms E/A ratio 1.0 MVA (PHT) 2.9 cm2 TDI E/E' Medial 12.4 E/E' Lateral 10.8 Medial E' Peak V 6.70 cm/s Lateral E' Peak V 7.70 cm/s Left Ventricle The left ventricle is normal size. Mid and distal hypokinesis severe Severe apical hypokinesis There is normal left ventricular wall thickness. LVEF is 40- 45%. The left ventricular diastolic function is normal. Right Ventricle The right ventricle is normal size. The right ventricular systolic function is normal. Atria The left atrium size is normal. The right atrium is mildly dilated. Aortic Valve The aortic valve is normal in structure. No aortic regurgitation is present. There is no aortic valvular stenosis. Mitral Valve The mitral valve is normal in structure. There is no mitral valve regurgitation noted. There is no mitral valve stenosis. Tricuspid Valve The tricuspid valve is normal in structure. There is no tricuspid valve regurgitation noted. Pulmonic Valve The pulmonary valve is normal in structure. There is no pulmonic valvular regurgitation. Great Vessels The aortic root is normal in size. The IVC is normal in size and collapses >50% with inspiration. Pericardium There is no pericardial effusion. Conclusion LVEF is 40-45%. Mid and distal hypokinesis severe Severe apical hypokinesis DICTATED BY: ETHAN ALLEN MD DATE: 02/25/2414 REASON: sob ORDERING PHYSICIAN: KIERAN GUILLORY PROCEDURE: CXR1VW - CHEST 1VW Exam Type: CHEST 1VW Clinical Information: sob Comparison: None Findings: Ill-defined infiltrates of the right upper lobe are seen consistent with pneumonia. The heart is normal in size. The bony and soft tissue structures show no worrisome pathology. IMPRESSION: Findings consistent with pneumonia. Follow-up is advised. DICTATED BY: ESTUARDO CAMPBELL MD DATE: 02/25/2453 LABORATORY: [ ] Hematology Labs: Test 02/25/24 07:21 Range/Units White Blood Count 11.2 H 4.8-10.8 K/uL Red Blood Count 3.64 L 4.50-6.20 MIL/uL Hemoglobin 10.9 L 14.0-18.0 g/dL Hematocrit 33.3 L 42-54 % Mean Corpuscular Volume 91.5 79-99 fL Mean Corpuscular Hemoglobin 29.9 27.0-33.0 pg Mean Corpuscular Hemoglobin Concent 32.7 32.0-36.0 g/dL Red Cell Distribution Width 12.9 11.0-15.5 % Platelet Count 386 130-400 K/uL Mean Platelet Volume 11.2 H 7.5-10.5 fL Immature Granulocyte % (Auto) 1.1 H 0-1 % Neutrophils (%) (Auto) 71.1 40.0-77.0 % Lymphocytes (%) (Auto) 18.3 L 21.0-51.0 % Monocytes (%) (Auto) 7.6 3.0-13.0 % Eosinophils (%) (Auto) 1.6 0.0-8.0 % Basophils (%) (Auto) 0.3 0.0-5.0 % Neutrophils # (Auto) 7.9 H 1.8-7.7 K/uL Lymphocytes # (Auto) 2.0 1.0-4.8 K/uL Monocytes # (Auto) 0.9 0.1-1.0 K/uL Eosinophils # (Auto) 0.18 0.00-0.70 K/uL Basophils # (Auto) 0.03 0.00-0.20 K/uL Absolute Immature Granulocyte (auto 0.12 0-1 K/uL Nucleated Red Blood Cells 0.0 0.0-0.19 % Chemistry Labs: Test 02/25/24 07:21 02/25/24 00:33 02/24/24 19:44 Range/Units Sodium Level 140 136-145 mmol/L Potassium Level 3.6 3.5-5.1 mmol/L Chloride Level 107 101-111 mmol/L Carbon Dioxide Level 27 21-32 mmol/L Blood Urea Nitrogen 23 H 7-18 mg/dL Creatinine 2.6 H 0.5-1.3 mg/dL Glomerular Filtration Rate Calc 30 >90 mL/min Random Glucose 138 #H 70-105 mg/dL Total Calcium 8.2 L 8.5-10.1 mg/dL Phosphorus Level 3.4 2.5-4.9 mg/dL Magnesium Level 1.90 1.80-2.40 mg/dL Lactic Acid Level 1.7 0.8-2.5 mmol/L Procalcitonin 0.17 0.05-0.5 ng/mL Troponin I High Sensitivity 46 4-75 ng/L B-Type Natriuretic Peptide 733 H 0-100 pg/mL ASSESSMENT: Hyperkalemia Acute on chronic renal failure Anemia Pneumonia Leukocytosis Uncontrolled diabetes mellitus type 2 JENNIFER on CKD Elevated BNP Mild hyperkalemia Hypertension Hyperlipidemia Total bilateral blindness PLAN: Labs, diagnostic, radiologic exams reviewed and interpreted by myself and supervising physician. We have reviewed external records in detail Obtain UA, urine electrolytes, urine creatinine, urine osmolality and complete renal ultrasound Start Nephro-Sandy daily Require close monitoring of renal function and electrolytes Order CBC, CMP, uric acid, TSH, complete iron panel, ferritin and electrolytes in am Iron panel/Epogen as needed Continue with antibiotics Renal diabetic diet BiPAP as necessary, for respiratory distress Monitor blood pressure adjust medication doses as needed Avoid hypotensive episodes May use Dilaudid 0.5 mg IV every 6 hours as needed for severe pain Monitor blood sugars Strict intake, output, and daily weight should be monitored Please renally adjust medications Avoid nephrotoxic and nonsteroidal drugs Avoid contrast if possible Will continue to monitor renal function, anemia, electrolytes Treatment plan discussed with patient Questions were answered We have discussed with the other team physicians in detail about the care plan We will continue to monitor the patient closely Thank you for allowing us to participate in the care of this patient ATTESTATION BY PHYSICIAN I have seen and examined the patient. I reviewed the documentation, medical decision making, and treatment plan as noted by the mid-level provider above. I agree with the findings and plan of care. JENNIE BELLO MD, [facility] Feb 25, 2024 15:50
--- NOTE | 2024-02-25 16:37 | NUR ---
PATIENT ARRIVED TO UNIT ALERT AND ORIENTED X4. NO S/S OF DISTRESS NOTED. PATIENT DENIES PAIN OR SOB AT THIS TIME. PATIENT ORIENTED TO ROOM. CALL LIGHT WITHIN REACH AND BED IN LOWEST POSITION
--- NOTE | 2024-02-25 17:53 | HMCIMG ---
Exam Type: US RENAL SONOGRAM Clinical Information: JENNIFER Comparison: None Findings: Examination shows normal renal size and echogenicity bilaterally. Preserved cortical thickness and corticomedullary junction region is seen. No hydronephrosis or calculi are seen. No renal masses are seen. There is no evidence of perinephric fluid on either side. No evidence of significant ureteral dilatation is seen. The right kidney measures 11 x 5.8 cm. The left kidney measures 11.4 x 5 cm. The urinary bladder is normal. No bladder masses, stones, or wall thickening is seen. IMPRESSION: Normal renal anatomy bilaterally.
[2024-02-25] MEDS: cefTRIAXone 1G VIAL IV SCH (23:34)
[2024-02-26 03:37] VITALS: BP 151/80; PULSE 92; RESP 20; TEMP 99.1
[2024-02-26] MEDS: LACTATED RINGERS 1000ML 1,000 ML IV SCH (04:14)
[2024-02-26 05:38] LABS: HEMATOCRIT 33.3 % (42-54); MEAN CORPUSCULAR HEMOGLOBIN 30.1 pg (27.0-33.0); MEAN CORPUSCULAR HGB CONC 32.7 g/dL (32.0-36.0); RED BLOOD CELL COUNT(AUTO) 3.62 MIL/uL (4.50-6.20); RED CELL DISTRIBUTION WIDTH 12.8 % (11.0-15.5)
[2024-02-26 06:06] LABS: % IRON SATURATION 31.4 % (30-44)
[2024-02-26 06:13] LABS: ALBUMIN 1.3 g/dL (3.5-5.0); BILIRUBIN,TOTAL 0.2 mg/dL (0.2-1.0); CREATININE 2.5 mg/dL (0.5-1.3); MAGNESIUM 1.9 mg/dL (1.80-2.40); PHOSPHORUS 3.6 mg/dL (2.5-4.9); POTASSIUM 4.8 mmol/L (3.5-5.1); TOTAL PROTEIN, SERUM 6.4 g/dL (6.0-8.3); URIC ACID 5.2 mg/dL (2.6-7.2)
[2024-02-26 06:31] VITALS: PULSE 95; RESP 18; O2SAT 93
[2024-02-26 08:00] VITALS: BP 152/90; PULSE 95; RESP 19; TEMP 98.2; O2SAT 97
[2024-02-26] MEDS ORDERED: ATOR40TA71 PO (09:25)
[2024-02-26] MEDS ORDERED: CLOP75TA32 PO (09:25)
[2024-02-26] MEDS ORDERED: FURO40TA5 PO (09:25)
[2024-02-26] MEDS ORDERED: DORZ10DR10 OU (09:25)
[2024-02-26] MEDS ORDERED: CARV6.25 PO (09:25)
[2024-02-26] MEDS ORDERED: INSU100I94 SQ (09:25)
[2024-02-26] MEDS: Vitamin B Complex/Vit C/Folic Acid PO SCH (09:30)
[2024-02-26 11:21] VITALS: PULSE 85; RESP 18
[2024-02-26 12:00] VITALS: BP 150/83; PULSE 83; RESP 19; TEMP 97.6
--- NOTE | 2024-02-26 16:00 | PN ---
FOLLOWUP PROGRESS NOTE SUBJECTIVE: A 49-year-old male with a history of known chronic renal insufficiency. The patient initially presented to the hospital with underlying cough, increasing shortness of breath. Laboratory values revealed significant renal dysfunction with elevated BUN and creatinine. The patient does have a history of known cardiomyopathy. Chest x-ray shows underlying pneumonia, and the patient is being seen as a followup visit for all of the above. REVIEW OF SYSTEMS: GENERAL: He is feeling weak and tired. HEENT: No change in vision. No change in hearing. CARDIOVASCULAR: There is no current chest pain or palpitations. PULMONARY: The shortness of breath is improved. GASTROINTESTINAL: The patient is tolerating diet. MUSCULOSKELETAL: Complains of weakness. PHYSICAL EXAMINATION: VITAL SIGNS: Blood pressure 151/80, pulse of 90s. GENERAL: He is a chronically ill, older than appearing male. HEENT: Head is atraumatic. Pupils are equal, roving to light. Oropharynx is without exudate. Nares are clear. NECK: There is no JVP. There is no thyromegaly, no mass. CARDIOVASCULAR: Regular. There is no S3, S4 gallop. LUNGS: Coarse with equal thoracic movement. ABDOMEN: Soft, nondistended, nontender. EXTREMITIES: Reveal no clubbing, no cyanosis. NEUROLOGIC: He is awake. He is alert. LABORATORY DATA: Hemoglobin 10, hematocrit 33, white cell count is 9000. Sodium 141, potassium 4.8, BUN 25, creatinine is 2.5. Iron levels are all noted. IMPRESSION: * Acute on chronic renal failure. * Pneumonia. * Anemia. * Hypertension. PLAN: The patient's creatinine of 2.5 mg/dL is essentially the patient's baseline. There is no need for any form of renal replacement therapy. The patient's IV fluids can safely be discontinued as the patient now is tolerating a diet without difficulty. He will be given a one-time dose of Venofer for the anemia. We will follow closely. Once the patient is discharged, the patient can follow up in the [facility]. TID: [id number] RECEIPT: [id number]
[2024-02-26 16:07] VITALS: BP 148/81; PULSE 82; RESP 19; TEMP 97.5
[2024-02-26] MEDS ORDERED: AZIT250T9 PO (17:03)
--- NOTE | 2024-02-26 17:52 | NUR ---
PATIENT D/C HOME. NO S/S OF DISTRESS NOTED. TELE AND IV REMOVED. MEDICATIONS REVIEWED WITH PATIETN. VERBALIZED UNDERSTANDING. PATIENT AWARE OF F/U APPOINTMENTS HE NEEDS TO MAKE ON WEDNESDAY
[2024-02-26] MEDS ORDERED: IRON sUCROse COMPLEX 300 MG in 0.9% NACL 250ML 250 ML IV ONE (21:00)
--- NOTE | 2024-02-26 22:39 | DS ---
Discharge Summary Hospital Course Summary: The patient was admitted with pneumonia, leukocytosis and uncontrolled diabetes mellitus type 2. Initial labs reveal acute kidney injury on the setting of chronic kidney disease and elevated BNP. Blood cultures grew Gram-positive cocci and Gram-negative randa the patient was started on doxycycline and Rocephin with clinical improvement. The patient has been closely monitored by nephrology patient has cleared for discharge as creatinine has stabilized. Blood sugar control has been optimized during the hospital stay and the patient has demonstrated improved glucose management. Patient now feels well, denies fever, shortness of breath, chest pain, or worsening symptoms and wishes to be discharged home. Patient is clinically stable, afebrile, and tolerating regular diet. Creatinine is stable and there are no acute electrolyte abnormalities. The power chart reviewed, vital signs, laboratory tests, imaging test and medications have been reviewed. Primary nurse reports no incidences overnight. Latest vital signs are stable. CBC and CMP are stable. She is medically stable and cleared for discharge. Advised to follow-up with PCP in 2 to 3 days for continued evaluation. Advised to follow-up with endocrinology and nephrology. Patient verbalized understanding of instructions and discharge plan. Medications have been reconciled. Director Script(s): Nephrology: Dr. Bosch Procedure(s): [place] [address] [id number] IMAGING REPORT Signed PATIENT: SIGIFREDO ROJAS MR#: [id number] : 1975 SEX: M AGE: 49 LOCATION: EDHIP ORDER 50 STATUS: ADM IN REPORT#: [id number] SERVICE 48 REASON: sob ORDERING PHYSICIAN: KIERAN GUILLORY PROCEDURE: CXR1VW - CHEST 1VW Exam Type: CHEST 1VW Clinical Information: sob Comparison: None Findings: Ill-defined infiltrates of the right upper lobe are seen consistent with pneumonia. The heart is normal in size. The bony and soft tissue structures show no worrisome pathology. IMPRESSION: Findings consistent with pneumonia. Follow-up is advised. [place] [id number] [id number] IMAGING REPORT Signed PATIENT: SIGIFREDO ROJAS MR#: [id number] : 1975 SEX: M AGE: 49 LOCATION: 4DH ORDER 1612 STATUS: ADM IN REPORT#: [id number] SERVICE 1606 REASON: JENNIFER ORDERING PHYSICIAN: JENNIE BELLO MD PROCEDURE: RENAL - US RENAL SONOGRAM Exam Type: US RENAL SONOGRAM Clinical Information: JENNIFER Comparison: None Findings: Examination shows normal renal size and echogenicity bilaterally. Preserved cortical thickness and corticomedullary junction region is seen. No hydronephrosis or calculi are seen. No renal masses are seen. There is no evidence of perinephric fluid on either side. No evidence of significant ureteral dilatation is seen. The right kidney measures 11 x 5.8 cm. The left kidney measures 11.4 x 5 cm. The urinary bladder is normal. No bladder masses, stones, or wall thickening is seen. IMPRESSION: Normal renal anatomy bilaterally. 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 Advised to follow-up with endocrinology and nephrology Home Medications: Active Scripts Azithromycin (Azithromycin) 250 Mg Tablet, 1 TAB PO AD for 5 Days, #6 TAB 0 Refills 2 the first day followed by 1 for days 2-5 Prov:POLO ADLER I TELEPHONE APPOINTMENT CLERK 02/26/24 Reported Medications Dorzolamide HCl/Timolol Maleat (Dorzolamide-Timolol Eye Drops) 22.3 Mg-6.8 Mg/Ml Drops, 1 DROP OU AM 02/26/24 Insulin Glargine-Yfgn (Insulin Glargine-Yfgn) 100 Unit/Ml (3 Ml) Insuln.pen, 25 UNIT SQ BID 02/26/24 Clopidogrel Bisulfate (Clopidogrel) 75 Mg Tablet, 1 TAB PO DAILY 02/26/24 Atorvastatin Calcium (Atorvastatin Calcium) 40 Mg Tablet, 1 TAB PO DAILY 02/26/24 Carvedilol (Carvedilol) 6.25 Mg Tablet, 1 TAB PO BID 02/26/24 Furosemide (Furosemide) 40 Mg Tablet, 1 TAB PO DAILY 02/26/24 Insulin NPH Hum/Reg Insulin Hm (Novolin 70-30 Flexpen) 100 Unit/1 Ml Insuln.pen, 40 UNIT SQ DAILY, SYRINGE 01/15/22 Discontinued Reported Medications Atorvastatin Calcium (LIPITOR) 40 Mg Tablet, 40 MG PO DAILY, TAB 11/24/23 Clopidogrel Bisulfate (Plavix) 75 Mg Tablet, 75 MG PO DAILY, TAB 01/15/22 Folic Acid/Vitamin B Comp W-C (Nephro-Sandy Tablet) 0.8 Mg Tablet, 0.8 MG PO DAILY, TAB 01/15/22 Carvedilol (Coreg) 6.25 Mg Tablet, 6.25 MG PO BID, TAB 01/15/22 Aspirin (ASPIRIN 81 MG ECTAB) 81 Mg Ectab, 81 MG PO DAILY, TAB.EC 01/15/22 Discontinued Scripts Cephalexin (Cephalexin) 500 Mg Tablet, 500 MG PO Q12H, #6 TAB Prov:WILLAM ESPARZA AGPCNP 11/26/23 Time spent arranging discharge: 31-60 minutes (Reviewing, reconciling medications, patient education, and coordinating discharge took greater than 30 minutes) POLO ADLER Feb 26, 2024 22:39
[2024-02-27] MEDS ORDERED: atorVAStatin 40 MG TABLET PO SCH (09:00)
[2024-02-27] MEDS ORDERED: DORZOLAMIDE HCL/TIMOLOL MALEAT DROPS 10 ML BOTTLE OU SCH (09:00)
[2024-02-27] MEDS ORDERED: cloPIDOgrel 75MG TAB PO SCH (09:00)
== END 2024-02-26 18:15 | disposition home or self-care (01) | DRG 682 ==
LOC: EDH 19:30 → EDHIP 22:12 → 4DH 02-25 16:25
PROVIDERS: ADMIT Internal Medicine; ATTEND Internal Medicine
DX: N17.9 Acute kidney failure, unspecified (principal); J18.9 Pneumonia, unspecified organism; I13.0 Hypertensive heart and chronic kidney disease with heart failure and stage 1 through stage 4 chronic kidney disease, or unspecified chronic kidney disease; I42.9 Cardiomyopathy, unspecified; E11.65 Type 2 diabetes mellitus with hyperglycemia; N18.30 Chronic kidney disease, stage 3 unspecified; I50.9 Heart failure, unspecified; I25.10 Atherosclerotic heart disease of native coronary artery without angina pectoris; H54.3 Unqualified visual loss, both eyes; Z20.822 Contact with and (suspected) exposure to COVID-19; E87.5 Hyperkalemia; E78.5 Hyperlipidemia, unspecified; E11.22 Type 2 diabetes mellitus with diabetic chronic kidney disease; D64.9 Anemia, unspecified; I25.2 Old myocardial infarction; Z79.82 Long term (current) use of aspirin; Z79.4 Long term (current) use of insulin; Z79.899 Other long term (current) drug therapy
CPT/HCPCS: 36415; 71045; 76770; 80048; 80053; 82728; 82948; 83540; 83550; 83605; 83735; 83880; 84100; 84145; 84484; 84550; 85025; 85027; 87040; 87071; 87205; 87426; 87804; 93005; 93306; 94640; 94664; 96365; 96366; 96368; 96375; 99285; G0378; J0360; J0456; J0696; J1644; J1756; J1815; J3490; J7050

== ENCOUNTER 2024-10-15 19:56 | Emergency (ER) | payer BC, OTHER ==
[~2024-10-15] VITALS: Ht 172.7 cm; Wt 104.3 kg
[~2024-10-15 19:56] MED LIST changes: -AEC81 PO; -ATOR40TA69 PO; +ATOR40TA71 PO; +AZIT250T9 PO; +CARV6.25 PO; -CARV6.2579 PO; -CEPH500T PO; -CLOP-31 PO; +CLOP75TA32 PO; +DORZ10DR10 OU; -FOLI0.8T2 PO; +FURO40TA5 PO; +INSU100I94 SQ
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
[2024-10-15 20:19] LABS: IMMATURE GRANULOCYTE ABSOLUTE 0.04 K/uL (0-1); NUCLEATED RED BLOOD CELLS 0.0 % (0.0-0.19); PLATELET COUNT (AUTO) 280 K/uL (130-400); RED BLOOD CELL COUNT(AUTO) 4.64 MIL/uL (4.50-6.20); RED CELL DISTRIBUTION WIDTH 12.5 % (11.0-15.5); WHITE BLOOD COUNT (AUTO) 6.7 K/uL (4.8-10.8)
[2024-10-15 20:29] LABS: CREATININE 2.4 mg/dL (0.5-1.3); GLOMERULAR FILTR. RATE CALC 32 mL/min (>90); GLUCOSE,RANDOM 141 mg/dL (70-105); SODIUM SERUM 137 mmol/L (136-145); UREA NITROGEN, BLOOD 27 mg/dL (7-18)
[2024-10-15 20:31] LABS: ALCOHOL, BLOOD < 3 mg/dL (0-10)
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
--- NOTE | 2024-10-15 22:16 | EKG ---
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 : [id number] Requested By: MICHAEL BURNETTE Order Number: [id number] Reading MD: Larry Stevens Measurements Intervals [place] Rate: 86 P: 66 TN: 219 QRS: -26 QRSD: 109 T: 141 QT: 391 QTc: 467 Interpretive Statements Sinus rhythm Prolonged TN interval Probable left atrial enlargement LVH with secondary repolarization abnormality Anterior infarct, old Compared to ECG 02/24/2024 20:56:53 Left ventricular hypertrophy now present Early repolarization now present T-wave abnormality no longer present Possible ischemia no longer present Myocardial infarct finding still present Electronically Signed On 10-16-2024 13:59:14 CDT by Larry Stevens Please click the below link to view image of tracing.
[2024-10-16 01:02] VITALS: BP 139/89; PULSE 100; RESP 18; TEMP 98.3; O2SAT 98
== END 2024-10-16 01:30 | disposition home or self-care (01) ==
LOC: EDH 19:56
DX: S20.219A Contusion of unspecified front wall of thorax, initial encounter (principal); I16.0 Hypertensive urgency; F17.200 Nicotine dependence, unspecified, uncomplicated; I13.0 Hypertensive heart and chronic kidney disease with heart failure and stage 1 through stage 4 chronic kidney disease, or unspecified chronic kidney disease; E11.22 Type 2 diabetes mellitus with diabetic chronic kidney disease; N18.9 Chronic kidney disease, unspecified; Z79.02 Long term (current) use of antithrombotics/antiplatelets; Z79.4 Long term (current) use of insulin; Z79.899 Other long term (current) drug therapy; V89.2XXA Person injured in unspecified motor-vehicle accident, traffic, initial encounter; Y93.89 Activity, other specified; Y92.89 Other specified places as the place of occurrence of the external cause; Y99.8 Other external cause status
CPT/HCPCS: 99285; 70450; 96374; 96375; 71045; 84484; 80048; 85025; 36415; 73562; 72125; 71250; 74176; 93005; J0360; J2405; J2270